=== PATIENT | male | born 1940 | race Caucasian/White ===

== ENCOUNTER 2021-07-18 13:52 | Inpatient (IN) | payer MEDICARE, SELFPAY ==
[2021-07-18] VITALS (19 sets, daily range): BP systolic 126–159; BP diastolic 56–100; PULSE 82–87; RESP 18–38; TEMP 36.6–37.1; O2SAT 10–95; BMI 36.1; BMI 35.1
--- NOTE | 2021-07-18 14:18 | EKG12_ITS ---
Test Reason : COUGH Blood Pressure : / mmHG Vent. Rate : 082 BPM Atrial Rate : 082 BPM P-R Int : 226 ms QRS Dur : 092 ms QT Int : 400 ms P-R-T Axes : 048 -27 -05 degrees QTc Int : 467 ms Sinus rhythm with 1st degree A-V block Otherwise normal ECG Confirmed by DAVID SEGURA, ZEESHAN ([id number]), fashion editor HANNA MELENDZE ([id number]) on 07/19/2021 9:24:08 AM Referred By: ZAKIA Confirmed By:ZEESHAN HERNANDEZ MD
--- NOTE | 2021-07-18 14:18 | CT_ITS ---
STUDY: CTA CHEST REASON FOR EXAM: Male, 80 years old. COUGH, COVID +, A FIB, HX-PROSTATE CA RADIATION DOSAGE (If Supplied By Facility): CTDIvol = ( 15.04 ) mGy, DLP = ( 516.11 ) mGycm TECHNIQUE: The examination was performed with the intravenous administration of IV 100mL Isovue-370. Post-processing of the angiographic images was performed, with multiplanar reformation and 3D reconstruction. Individualized dose optimization techniques were used for this CT. COMPARISON: None. FINDINGS: Mild to moderate islands of consolidation and groundglass edema are scattered throughout both lungs with primarily peripheral distribution, consistent with Covid 19 pneumonia. Normal enhancement of the main pulmonary artery and right and left pulmonary arteries. Normal enhancement of the bilateral peripheral pulmonary arteries. There is no demonstrated pulmonary embolism. There is atherosclerotic calcification of the aortic arch with tortuosity. There is no demonstrated aortic dissection. Normal heart and pericardium. Normal mediastinum. Normal hilar regions. Normal visualized trachea and bronchi. The lungs are well expanded. Normal pleura. Normal chest wall structures. There are degenerative changes of thoracic spine. Normal visualized upper abdomen. CT/CTA Chest W/WO Contrast IMPRESSION: 1. Mild to moderate islands of consolidation and groundglass edema are scattered throughout both lungs with primarily peripheral distribution, consistent with Covid 19 pneumonia. 2. No demonstrated pulmonary embolism or arterial dissection. Electronically Signed: Krishan Lo MD at 16:39 EDT , Service support ,
--- NOTE | 2021-07-18 14:21 | EX.ED.DYSGE1 ---
HPI History of Present Illness Chief Complaint: Cough Narrative Narrative: Patient is an 80-year-old male from home who presents to the ER with shortness of breath/cough. He states he began with symptoms on July 06 and then tested positive for Covid on a home test on July 10. He states since that time has been having worsening shortness of breath and fatigue. He states he went to his family doctor today and his pulse ox was 82% on room air while there. He states he does not have a history of lung disorder denies any smoking or need for supplemental oxygen. He reports that with the persistent cough and now worsening shortness of breath and need for oxygen he was sent to the hospital for further evaluation and possible admission. [facility] Medical History Benign neoplasm of colon BPH (benign prostatic hyperplasia) CKD (chronic kidney disease) stage 3, GFR 30-59 ml/min Gout HLD (hyperlipidemia) HTN (hypertension) Hypothyroidism Osteoarthritis Paroxysmal atrial fibrillation Prostate cancer Home Medications allopurinol 100 mg PO BID 10/08/16 [History Last Taken Unknown] aspirin 81 mg PO DAILY@0800 10/08/16 [History Last Taken Unknown] bacitracin-polymyxin B 0.5 applic TP 5X/DAY #1 tube 10/08/16 [Rx Last Taken Unknown] lisinopril [Zestril] 10 mg PO DAILY 10/08/16 [History Last Taken Unknown] pravastatin 20 mg PO QHS 10/08/16 [History Last Taken Unknown] Allergy/AdvReac Type Severity Reaction Status Date / Time No Known Allergies Allergy Verified 10/08/16 09:45 Social History Smoking Status: Never smoker [facility] ED Constitutional Constitutional ED: Denies chills or fever(s) ENT ENT ED: Denies sore throat Cardiovascular Cardiovascular: Denies chest pain Respiratory/Chest Respiratory/Chest: Reports cough and dyspnea Gastrointestinal Gastrointestinal: Denies abdominal pain, diarrhea, nausea or vomiting Genitourinary Genitourinary ED: Denies dysuria Musculoskeletal Musculoskeletal: Reports myalgias Integumentary Denies rash Neurologic Neurologic: Denies headache(s) Hematologic/Lymphatic Hematologic/Lymphatic: Reports easy bleeding and easy bruising EXAM Physical Exam Const Vital Signs: 07/18/21 13:53 07/18/21 14:06 07/18/21 15:00 Temperature 98.4 F 98.7 F 97.9 F Temperature Source Temporal Temporal Temporal Pulse Rate 86 84 85 Respiratory Rate 18 38 H 36 H Respiratory Effort Short of Breath Respiratory Depth Shallow Respiratory Pattern Tachypnea Blood Pressure 139/78 H 148/56 H 159/100 H Blood Pressure Mean 98 86 119 Pulse Ox 78 91 90 Oxygen Delivery Method Room Air Nasal Cannula Nasal Cannula Oxygen Flow Rate (L/min) 6 6 07/18/21 16:00 Temperature 98 F Temperature Source Temporal Pulse Rate 85 Respiratory Rate 26 H Respiratory Effort Respiratory Depth Respiratory Pattern Blood Pressure 143/70 H Blood Pressure Mean 94 Pulse Ox 90 Oxygen Delivery Method Nasal Cannula Oxygen Flow Rate (L/min) 6 Positive well nourished and well developed General Appearance ED: well developed HEENT HEENT Narrative: Mucous membranes are dry and tacky. No tongue or lip swelling no airway edema or compromise Eyes PERRL and EOMs intact bilaterally Neck supple and no JVD Neck Narrative: Positive anterior cervical lymphadenopathy noted Resp Resp Narrative: Patient is in mild respiratory distress with tachypnea and slight accessory muscle use. Breath sounds are diminished throughout with diffuse expiratory wheeze and rhonchi in the bilateral bases. Cardio regular rate and regular rhythm GI non-tender and non-distended GI Narrative: No voluntary guarding no rigidity no pulsatile mass Auscultation: normoactive bowel sounds Palpation: soft Extremity normal to inspection Extremity Narrative: No asymmetric edema no pitting edema negative Homans' sign bilaterally Neuro oriented x3 and CN's II-XII intact bilaterally Sensorium / Orientation: alert Motor Exam: strength 5/5 throughout Psych mental status grossly normal Skin no rashes or lesions noted Skin Narrative: Skin turgor is increased MDM MDM MDM Narrative Medical decision making narrative: Patient was at his doctor's office and was down to 82% on room air. He has no need for supplemental oxygen and no report of lung pathology. He states he tested positive for Covid on a home test on July 10 but as I do not have record of this I did elect to perform a rapid. His rapid test was negative but his CT scan revealed groundglass opacities consistent with Covid pneumonia. At this time he is requiring 7 L to keep his oxygen level greater than 90% and he still has tachypnea breathing approximately 30 times a minute. Therefore this time I do not feel he is safe for discharge. Patient was given albuterol and Decadron in the ER and will be admitted to the hospital secondary to his need for supplemental oxygen Lab Data Attestation: I reviewed the patient's lab results. Labs: Laboratory Results - last 24 hr 07/18/21 07/18/21 07/18/21 14:30 14:30 14:30 WBC 9.9 RBC 4.83 Hgb 14.1 Hct 41.8 MCV 86.5 MCH 29.2 MCHC 33.7 RDW Std Deviation 46.3 H RDW Coeff of Arjun 14.6 Plt Count 293 MPV 9.8 Immature Gran % (Auto) 2.100 H Neut % (Auto) 87.5 H Lymph % (Auto) 6.6 L Woodson % (Auto) 2.9 Eos % (Auto) 0.5 Baso % (Auto) 0.4 Absolute Neuts (auto) 8.6 H Absolute Lymphs (auto) 0.65 L Nucleated RBC % 0 PT 20.2 H INR 1.8 APTT 48.2 H Sodium Potassium Chloride Carbon Dioxide Anion Gap BUN Creatinine Estim Creat Clear Calc Est GFR (MDRD) Af Amer Est GFR (MDRD) Non-Af BUN/Creatinine Ratio Glucose Calcium Troponin I High Sens B-Natriuretic Peptide 195.8 H 07/18/21 14:30 WBC RBC Hgb Hct MCV MCH MCHC RDW Std Deviation RDW Coeff of Arjun Plt Count MPV Immature Gran % (Auto) Neut % (Auto) Lymph % (Auto) Woodson % (Auto) Eos % (Auto) Baso % (Auto) Absolute Neuts (auto) Absolute Lymphs (auto) Nucleated RBC % PT INR APTT Sodium 137 Potassium 3.9 Chloride 100 Carbon Dioxide 29.0 Anion Gap 8 BUN 26 H Creatinine 1.22 Estim Creat Clear Calc 49.86 Est GFR (MDRD) Af Amer 73 Est GFR (MDRD) Non-Af 61 BUN/Creatinine Ratio 21.3 H Glucose 162 H Calcium 9.2 Troponin I High Sens 22 B-Natriuretic Peptide Radiography Diagnostic Testing: Clinical Impression(s) from Imaging Studies Chest CTA 07/18/21 14:18 IMPRESSION: 1. Mild to moderate islands of consolidation and groundglass edema are scattered throughout both lungs with primarily peripheral distribution, consistent with Covid 19 pneumonia. 2. No demonstrated pulmonary embolism or arterial dissection. Electronically Signed: Krishan Lo MD at 16:39 EDT , Service support , Critical Care Time Critical Care Time: Yes Critical care time (excluding procedures): - (Please note critical care time of 33 minutes) Discharge Plan Triage Chief Complaint: Cough ED Provider: Umberto Mcdaniels Dx/Rx/DC Orders Clinical Impression: Acute respiratory failure with hypoxia Prescriptions: No Action allopurinol 100 MG tablet 100 mg PO BID RF: 0 lisinopril [Zestril] 10 MG tablet 10 mg PO DAILY RF: 0 aspirin 81 MG Tab.Chew 81 mg PO DAILY@0800 RF: 0 pravastatin 20 MG tablet 20 mg PO QHS RF: 0 bacitracin-polymyxin B 14.17 GM Oint...G. 0.5 applic TP 5X/DAY Qty: 1 RF: 0 Primary Care Provider: Rohan Dyer Referrals: Rohan Dyer MD [Primary Care Provider] - Disposition Disposition: Acute Care Hospital [facility]
--- NOTE | 2021-07-18 14:25 | NURSING ---
NO OLD EKGS
[2021-07-18 14:42] LABS: Absolute Lymphocyte Count 0.65 X10^3/uL (0.83-4.51); Absolute Neutrophil Count 8.6 X10^3/uL (2.0-7.7); Basophil# 0.04 X10^3/uL; Basophil% 0.4 % (0-1); Eosinophil# 0.05 X10^3/uL; Eosinophils% 0.5 % (0-5); Hematocrit 41.8 % (40-54); Hemoglobin 14.1 g/dL (13.0-16.5); Lymphocyte # 0.65 X10^3/ul (0.83-4.51); Lymphocyte % 6.6 % (19-41); Mean Corp Hgb Conc 33.7 g/dL (32-36); Mean Corpuscular Hgb 29.2 pg (27.0-32.0); Mean Corpuscular Volume 86.5 fL (80-94); Mean Platelet Vol. 9.8 fl (6.2-12.0); Monocyte# 0.29 X10^3/uL; Monocyte% 2.9 % (0-10); NRBC Flagged by Analyzer 0 % (0-5); Neutrophil # 8.61 X10^3/uL (2.7-7.7); Neutrophil % 87.5 % (47-70); Platelet Count 293 K/mm3 (150-450); RBC Distribution Width CV 14.6 % (11.6-14.6); RBC Distribution Width SD 46.3 fl (35.1-43.9); Red Blood Count 4.83 M/mm3 (4.6-6.2); White Blood Count 9.9 K/mm3 (4.4-11.0)
[2021-07-18] MEDS: dexAMETHasone 10 MG/ML Vial IV (14:44)
[2021-07-18 15:02] LABS: International Normalized Ratio 1.8; Prothrombin Time (Protime)PT. 20.2 SECONDS (11.7-14.9)
[2021-07-18 15:03] LABS: Partial Thromboplast Time 48.2 Seconds (24.1-36.2)
[2021-07-18 15:04] LABS: Anion Gap 8 (5-15); BUN 26 mg/dL (7-18); BUN/Creat Ratio 21.3 RATIO (10-20); Calcium,Total 9.2 mg/dL (8.5-10.1); Chloride 100 mmol/L (98-107); Creatinine, Serum 1.22 mg/dL (0.70-1.30); EST Glomerular Filtration Rate 61 mL/min (>60); Est Glom Filt Rate - Afr Amer 73 mL/min (>60); Estimated Creatinine Clearance 49.86 ml/min; Glucose 162 mg/dL (74-106); Potassium 3.9 mmol/L (3.5-5.1); Sodium Level 137 mmol/L (136-145); Troponin-I HS 22 pg/mL (3.0-78.0)
[2021-07-18 15:20] LABS: BNP,B-Type NATRIURETIC PEPTIDE 195.8 pg/mL (0-100)
--- NOTE | 2021-07-18 17:15 | NURSING ---
DR BAUTISTA FOR DR KOEHLER
--- NOTE | 2021-07-18 17:25 | PCM.HP.STD ---
Documented by User: ANGELO Richardson 07/18/21 17:45 HPI - General General Date of Admission: 07/18/21 Date of Service: 07/18/21 Chief Complaint: Shortness of breath HPI Narrative RENATO DALLAS JR, is a 80 M who presents with complaints of increased shortness of breath. Patient states that he became symptomatic on 07/06/2021 and tested positive for Covid via home Covid test on 07/10/2021. Patient states that he went to primary care physician's office today due to increased shortness of breath and was noted to have a pulse ox in the 80s on room air as well as adventitious lung sounds. Patient was then sent to ER. Patient denies fever, chills, chest pain, nausea, vomiting. Patient also reports persistent harsh cough. [facility] Medical History (Updated 07/18/21 @ 17:40 by ANGELO Richardson) Benign neoplasm of colon BPH (benign prostatic hyperplasia) CKD (chronic kidney disease) stage 3, GFR 30-59 ml/min Gout HLD (hyperlipidemia) HTN (hypertension) Hypothyroidism Osteoarthritis Paroxysmal atrial fibrillation Prostate cancer Home Medications allopurinol 100 mg PO BID 10/08/16 [History Last Taken Unknown] amiodarone 100 mg PO DAILY 07/18/21 [History Last Taken 07/18/21] amlodipine 5 mg PO DAILY 07/18/21 [History Last Taken 07/18/21] apixaban [Eliquis] 5 mg PO BID 07/18/21 [History Last Taken 07/18/21] atorvastatin 20 mg PO QHS 07/18/21 [History Last Taken 07/17/21] levothyroxine [Synthroid] 88 mcg PO DAILY 07/18/21 [History Last Taken 07/17/21] lisinopril 40 mg PO DAILY 07/18/21 [History Last Taken 07/18/21] metoprolol tartrate 25 mg PO BID 07/18/21 [History Last Taken 07/18/21] Allergy/AdvReac Type Severity Reaction Status Date / Time No Known Allergies Allergy Verified 10/08/16 09:45 Family History (Updated 07/18/21 @ 17:28 by ANGELO Richardson) Father CVA (cerebral vascular accident) Mother Breast cancer Surgical History (Updated 07/18/21 @ 17:28 by ANGELO Richardson) History of cholecystectomy History of tonsillectomy Previous back surgery Social History (Updated 07/18/21 @ 17:29 by ANGELO Richardson) Smoking Status: Never smoker alcohol intake: never substance use type: does not use ROS Constitutional Constitutional: Reports malaise; Denies anorexia, chills, fever(s) or weakness Cardiovascular Cardiovascular: Denies chest pain, edema, palpitations or syncope Respiratory/Chest Respiratory/Chest: Reports cough, shortness of breath at rest, shortness of breath with exertion and wheezing Gastrointestinal Gastrointestinal: Denies abdominal pain, constipation, diarrhea, nausea or vomiting Genitourinary Genitourinary: Denies dysuria Musculoskeletal Musculoskeletal: Denies back pain, extremity pain, joint pain or joint stiffness Integumentary Integumentary: Denies dry skin Neurologic Neurologic: Denies abnormal gait, abnormal speech, confusion or dizziness Psychiatric Psychiatric: Denies anxiety or depression Endocrine Endocrinology: Denies change in body appearance Hematologic/Lymphatic Hematologic/Lymphatic: Denies anemia, easy bleeding or easy bruising Vital Signs Vital Signs Vital Signs: 07/18/21 13:53 07/18/21 14:06 07/18/21 15:00 Temperature 98.4 F 98.7 F 97.9 F Temperature Source Temporal Temporal Temporal Pulse Rate 86 84 85 Respiratory Rate 18 38 H 36 H Respiratory Effort Short of Breath Respiratory Depth Shallow Respiratory Pattern Tachypnea Blood Pressure 139/78 H 148/56 H 159/100 H Blood Pressure Mean 98 86 119 Pulse Ox 78 91 90 Oxygen Delivery Method Room Air Nasal Cannula Nasal Cannula Oxygen Flow Rate (L/min) 6 6 07/18/21 16:00 Temperature 98 F Temperature Source Temporal Pulse Rate 85 Respiratory Rate 26 H Respiratory Effort Respiratory Depth Respiratory Pattern Blood Pressure 143/70 H Blood Pressure Mean 94 Pulse Ox 90 Oxygen Delivery Method Nasal Cannula Oxygen Flow Rate (L/min) 6 Weight Weight: 252 lb Body Mass Index (BMI) 36.1 Physical Exam Const alert, oriented x3 and no apparent distress General Appearance: cooperative HEENT normocephalic and head/scalp atraumatic Eyes conjunctivae normal and no scleral icterus Neck full ROM and supple General: trachea midline Resp normal respiratory effort and normal air movement Effort and Inspection: tachypneic Auscultation: wheezes expiratory wheezes, anterior and throughout Cardio regular rate, regular rhythm, S1 normal heart sound, S2 normal heart sound and peripheral pulses 2+ throughout GI normal to inspection, nondistended, normoactive bowel sounds, soft to palpation and non-tender Extremity normal capillary refill and no clubbing, cyanosis or edema General Extremity: no tenderness to palpation of joints or extremities Skin General Skin Exam: no breakdown and turgor normal Lesions: no lesions Rashes: no rashes Neuro oriented x3, moves all extremities, no focal motor deficits and no sensory deficits noted Psych thought process normal, cooperative and affect normal Appearance: appropriate Results Lab / Micro Data Result Diagrams: 07/18/21 14:30 07/18/21 14:30 Labs: Laboratory Results - last 24 hr 07/18/21 14:30: PT 20.2 H, INR 1.8, APTT 48.2 H 07/18/21 14:30: B-Natriuretic Peptide 195.8 H 07/18/21 14:30: WBC 9.9, RBC 4.83, Hgb 14.1, Hct 41.8, MCV 86.5, MCH 29.2, MCHC 33.7, RDW Std Deviation 46.3 H, RDW Coeff of Arjun 14.6, Plt Count 293, MPV 9.8, Immature Gran % (Auto) 2.100 H, Neut % (Auto) 87.5 H, Lymph % (Auto) 6.6 L, Zavala % (Auto) 2.9, Eos % (Auto) 0.5, Baso % (Auto) 0.4, Absolute Neuts (auto) 8.6 H, Absolute Lymphs (auto) 0.65 L, Nucleated RBC % 0 07/18/21 14:30: Sodium 137, Potassium 3.9, Chloride 100, Carbon Dioxide 29.0, Anion Gap 8, BUN 26 H, Creatinine 1.22, Estim Creat Clear Calc 49.86, Est GFR (MDRD) Af Amer 73, Est GFR (MDRD) Non-Af 61, BUN/Creatinine Ratio 21.3 H, Glucose 162 H, Calcium 9.2, Troponin I High Sens 22 Micro: Microbiology 07/18/21 14:46 Nasal Secretion SARS-CoV-2 Antigen (Rapid) - Final Radiology Impression Chest CTA 07/18/21 14:18 IMPRESSION: 1. Mild to moderate islands of consolidation and groundglass edema are scattered throughout both lungs with primarily peripheral distribution, consistent with Covid 19 pneumonia. 2. No demonstrated pulmonary embolism or arterial dissection. Electronically Signed: Krishan Lo MD at 16:39 EDT , Service support , Assessment & Plan Assessment/Plan (1) COVID-19: (2) Acute respiratory failure with hypoxia: PLAN: 1. Acute respiratory failure with hypoxia secondary to COVID-19 pneumonia -Admit to [facility], patient currently on 7 L nasal cannula oxygen -Patient will be initiated on dexamethasone, patient has been symptomatic for 12 days so he is not eligible for remdesivir. -As needed albuterol nebulizer treatments ordered -Covid precautions ordered -CBC and CMP ordered daily -Respiratory panel ordered -Urine Legionella and strep pneumoniae ordered for evaluation for bacterial superimposed pneumonia -Sputum culture p ordered -Encourage incentive spirometry, encourage patient to lie on side or stomach as much as possible -PT and OT to eval and treat -IV Lasix 40 mg x 1 IV given 2. Hypertension -Continue lisinopril -Vital signs per protocol 3. Hyperlipidemia -Continue pravastatin DVT prophylaxis-subcu Lovenox This patient was seen by ANGELO Richardson under the supervision of Dr. Blank. Documented by User: Dr. Mary Blank MD 07/18/21 17:53 HPI - General General Date of Admission: 07/18/21 [facility] Medical History (Updated 07/18/21 @ 17:40 by Poppy Douglass NP-Kristopher) Benign neoplasm of colon BPH (benign prostatic hyperplasia) CKD (chronic kidney disease) stage 3, GFR 30-59 ml/min Gout HLD (hyperlipidemia) HTN (hypertension) Hypothyroidism Osteoarthritis Paroxysmal atrial fibrillation Prostate cancer Home Medications allopurinol 100 mg PO BID 10/08/16 [History Last Taken Unknown] amiodarone 100 mg PO DAILY 07/18/21 [History Last Taken 07/18/21] amlodipine 5 mg PO DAILY 07/18/21 [History Last Taken 07/18/21] apixaban [Eliquis] 5 mg PO BID 07/18/21 [History Last Taken 07/18/21] atorvastatin 20 mg PO QHS 07/18/21 [History Last Taken 07/17/21] levothyroxine [Synthroid] 88 mcg PO DAILY 07/18/21 [History Last Taken 07/17/21] lisinopril 40 mg PO DAILY 07/18/21 [History Last Taken 07/18/21] metoprolol tartrate 25 mg PO BID 07/18/21 [History Last Taken 07/18/21] Allergy/AdvReac Type Severity Reaction Status Date / Time No Known Allergies Allergy Verified 10/08/16 09:45 Family History (Updated 07/18/21 @ 17:28 by ANGELO Richardson) Father CVA (cerebral vascular accident) Mother Breast cancer Surgical History (Updated 07/18/21 @ 17:28 by ANGELO Richardson) History of cholecystectomy History of tonsillectomy Previous back surgery Social History (Updated 07/18/21 @ 17:29 by ANEGLO Richardson) Smoking Status: Never smoker alcohol intake: never substance use type: does not use Results Lab / Micro Data Result Diagrams: 07/18/21 14:30 07/18/21 14:30 Charges/Coding Addendum Addendum: This patient was seen in conjunction with Poppy Douglass NP. I have independently interviewed and examined the patient and reviewed pertinent historical, laboratory, and other data. I have reviewed her note and concur with her documentation 80-year-old male with past medical history of hypertension, paroxysmal atrial fibrillation who comes in with progressive shortness of breath. Patient has been vaccinated. She received both doses of more than now. He started having symptoms on 07/06/21. He tested positive for Covid on 07/10/21. He comes in because his pulse ox was in the 80s in his primary care doctor's office. Patient was seen in the low 90s on 6 L of oxygen. CTA of the chest was negative for acute PE Physical Exam: Gen:Comfortable, not pale, not jaundiced, on 6L oxygen, obese CVS:HS I +II, regular, no murmurs RESP: Diminished at lung bases GI: BS present and normal, soft, nontender, no palpable organs EXT:No edema ASSESSMENT: 1. Acute hypoxic respiratory failure secondary to acute COVID-19 pneumonia 2. Hypertension 3. Hyperlipidemia 4. Paroxysmal A. fib 5. Hypothyroidism Plan: Admit to [facility], continue on IV dexamethasone Not a candidate for remdesivir Breathing treatments Check urine Legionella and streptococcal antigen Sputum cultures Continue on apixaban Continue rest of his home medications Trial of Lasix 40 mg IV x1 I discussed and explained in details the various types of CODE STATUS-full code, DNR CCA, DNR CC. Patient chose DNR-CCA, no intubation Time spent discussing CODE STATUS 16 minutes Visit Charges Inpatient E&M: 47771 Init Hosp L3 Procedures Hospitalists Procedures: 96251 Advncd Care Plan 30 Min
--- NOTE | 2021-07-18 17:28 | NURSING ---
HOSPITALIST IN ER
--- NOTE | 2021-07-18 17:59 | ED.RN ---
THIS NURSE CONTACTED THE CHARGE NURSE ON MED SURG 3, ANNA, PER REQUEST TO PLEASE CONTACT THE WITH THE PCR COVID RESULTS
[2021-07-18] MEDS: Furosemide 40 MG/4 ML Vial IV (18:41)
[2021-07-18] MEDS: 0.9% Saline Lock 10 ML Syringe IV ×2 (18:41→22:31)
--- NOTE | 2021-07-18 20:57 | NURSING ---
Notified of test results per request.
[2021-07-18] MEDS: Allopurinol 100 MG Tablet PO (22:31)
[2021-07-18] MEDS: APIXABAN 5 MG TABLET PO (22:32)
[2021-07-18] MEDS: Atorvastatin Calcium 20 MG Tablet PO (22:32)
[2021-07-18] MEDS: Metoprolol Tartrate 25 MG Tablet PO (22:32)
[2021-07-19] VITALS (23 sets, daily range): BP systolic 111–143; BP diastolic 50–86; PULSE 62–89; RESP 18–26; TEMP 36.6–37; O2SAT 86–96
--- NOTE | 2021-07-19 00:56 | PCS.PANDOC ---
PANDEMIC DOCUMENTATION INITIATED: Date: 07/18/2021 Time: 190
[2021-07-19] MEDS: Levothyroxine 88 MCG Tablet PO (05:39)
[2021-07-19 06:25] LABS: Absolute Lymphocyte Count 0.82 X10^3/uL (0.83-4.51); Absolute Neutrophil Count 10.3 X10^3/uL (2.0-7.7); Basophil# 0.02 X10^3/uL; Basophil% 0.2 % (0-1); Hematocrit 39.5 % (40-54); Hemoglobin 13.4 g/dL (13.0-16.5); Lymphocyte # 0.82 X10^3/ul (0.83-4.51); Mean Corp Hgb Conc 33.9 g/dL (32-36); Mean Corpuscular Hgb 29.5 pg (27.0-32.0); Mean Corpuscular Volume 86.8 fL (80-94); Mean Platelet Vol. 10.1 fl (6.2-12.0); Monocyte# 0.24 X10^3/uL; Monocyte% 2.1 % (0-10); NRBC Flagged by Analyzer 0 % (0-5); Neutrophil # 10.34 X10^3/uL (2.7-7.7); Neutrophil % 88.8 % (47-70); Platelet Count 330 K/mm3 (150-450); RBC Distribution Width CV 14.8 % (11.6-14.6); RBC Distribution Width SD 47.4 fl (35.1-43.9); Red Blood Count 4.55 M/mm3 (4.6-6.2); White Blood Count 11.6 K/mm3 (4.4-11.0)
[2021-07-19 07:05] LABS: ALB/GLOB Ratio 0.5 RATIO (0.9-2.4); AST(SGOT) 37 U/L (15-37); Alanine Aminotransfer ALT/SGPT 48 U/L (16-61); Albumin, Serum 2.3 g/dL (3.2-5.0); Alkaline Phosphatase 112 U/L (45-117); Anion Gap 9 (5-15); BUN 31 mg/dL (7-18); BUN/Creat Ratio 23.5 RATIO (10-20); Chloride 101 mmol/L (98-107); Creatinine, Serum 1.32 mg/dL (0.70-1.30); EST Glomerular Filtration Rate 55 mL/min (>60); Est Glom Filt Rate - Afr Amer 67 mL/min (>60); Estimated Creatinine Clearance 46.09 ml/min; Glucose 188 mg/dL (74-106); Potassium 3.7 mmol/L (3.5-5.1); Protein, Total 7.3 g/dL (6.4-8.2); Sodium Level 136 mmol/L (136-145)
--- NOTE | 2021-07-19 07:20 | PCM.PN.HOSP ---
Subjective Subjective Patient is an 80-year-old gentleman vaccinated against COVID-19 who presented with persistent cough as well as shortness of breath with activity. He had apparently tested positive for Covid on 07/10/2021. Presented to the emergency department due to worsening symptoms. Imaging studies obtained on admission demonstrated Mild to moderate islands of consolidation and groundglass edema are scattered throughout both lungs with primarily peripheral distribution, consistent with Covid 19 pneumonia.. Admitted to regular nursing floor for further management Objective Data Objective Data Vital Signs: Vital Signs Temp Pulse Resp BP Pulse Ox 97.9 F 78 18 122/78 H 92 07/19/21 05:34 07/19/21 05:34 07/19/21 05:34 07/19/21 05:34 07/19/21 05:34 Oxygen Flow Rate (L/min) 60 Oxygen Delivery Method Airvo Weight: 111.1 kg Body Mass Index (BMI) 35.1 Intake & Output: Intake and Output for Last 24 Hours 07/17/21 07/18/21 07/19/21 23:59 23:59 23:59 Intake Total 500 / 500 Output Total 300 / 300 300 / 300 Balance 200 / 200 -300 / -300 Lab / Micro Data Result Diagrams: 07/19/21 05:58 07/19/21 05:58 Labs: Laboratory Results - last 24 hr 07/18/21 14:30: PT 20.2 H, INR 1.8, APTT 48.2 H 07/18/21 14:30: B-Natriuretic Peptide 195.8 H 07/18/21 14:30: WBC 9.9, RBC 4.83, Hgb 14.1, Hct 41.8, MCV 86.5, MCH 29.2, MCHC 33.7, RDW Std Deviation 46.3 H, RDW Coeff of Arjun 14.6, Plt Count 293, MPV 9.8, Immature Gran % (Auto) 2.100 H, Neut % (Auto) 87.5 H, Lymph % (Auto) 6.6 L, [place] % (Auto) 2.9, Eos % (Auto) 0.5, Baso % (Auto) 0.4, Absolute Neuts (auto) 8.6 H, Absolute Lymphs (auto) 0.65 L, Nucleated RBC % 0 07/18/21 14:30: Sodium 137, Potassium 3.9, Chloride 100, Carbon Dioxide 29.0, Anion Gap 8, BUN 26 H, Creatinine 1.22, Estim Creat Clear Calc 49.86, Est GFR (MDRD) Af Amer 73, Est GFR (MDRD) Non-Af 61, BUN/Creatinine Ratio 21.3 H, Glucose 162 H, Calcium 9.2, Troponin I High Sens 22 07/18/21 17:25: COVID-19 (DRAKE) Detected 07/19/21 05:58: WBC 11.6 H, RBC 4.55 L, Hgb 13.4, Hct 39.5 L, MCV 86.8, MCH 29.5, MCHC 33.9, RDW Std Deviation 47.4 H, RDW Coeff of Arjun 14.8 H, Plt Count 330, MPV 10.1, Immature Gran % (Auto) 1.900 H, Neut % (Auto) 88.8 H, Lymph % (Auto) 7.0 L, [place] % (Auto) 2.1, Eos % (Auto) 0.0, Baso % (Auto) 0.2, Absolute Neuts (auto) 10.3 H, Absolute Lymphs (auto) 0.82 L, Nucleated RBC % 0 07/19/21 05:58: Sodium 136, Potassium 3.7, Chloride 101, Carbon Dioxide 26.0, Anion Gap 9, BUN 31 H, Creatinine 1.32 H, Estim Creat Clear Calc 46.09, Est GFR (MDRD) Af Amer 67, Est GFR (MDRD) Non-Af 55 L, BUN/Creatinine Ratio 23.5 H, Glucose 188 H, Calcium 9.0, Total Bilirubin 1.40 H, AST 37, ALT 48, Alkaline Phosphatase 112, Total Protein 7.3, Albumin 2.3 L, Globulin 5.0 H, Albumin/Globulin Ratio 0.5 L Micro: Microbiology 07/18/21 17:25 Mucosa - Nasopharyngeal Respiratory Panel (PCR) - Final 07/18/21 20:53 Urine, Clean Catch Legionella Antigen - Final 07/18/21 20:53 Urine, Clean Catch Streptococcus pneumoniae Antigen (M - Final 07/18/21 14:46 Nasal Secretion SARS-CoV-2 Antigen (Rapid) - Final Radiography Diagnostic Testing: Radiology Impression Chest CTA 07/18/21 14:18 IMPRESSION: 1. Mild to moderate islands of consolidation and groundglass edema are scattered throughout both lungs with primarily peripheral distribution, consistent with Covid 19 pneumonia. 2. No demonstrated pulmonary embolism or arterial dissection. Electronically Signed: Krishan Lo MD at 16:39 EDT , Service support , Physical Exam Narrative GENERAL: cooperative, on Vapotherm HEENT: Atraumatic; EYES; Anicteric, Normal Conjunctiva NECK; supple, normal thyroid, RESPIRATORY: Diminished to auscultation CARDIOVASCULAR: Regular S1 S2, GI: soft, normoactive bowel sounds, : No Renal angle tenderness; EXTREMITIES: No edema, no clubbing, MUSCULOSKELETAL: no muscle waisting NEURO: Awake; no lateralizing signs. SKIN: No Rash PSYCH; Flat affect Assessment & Plan Assessment/Plan (1) COVID-19: (2) Acute respiratory failure with hypoxia: PLAN: Patient is an 80-year-old gentleman vaccinated against COVID-19 who presented with persistent cough as well as shortness of breath with activity. He h 1. Acute hypoxic respiratory failure ?Secondary to SARS-CoV-2 pneumonia. Admitted to regular nursing floor where patient is currently being managed with Decadron. Patient is outside the window for remdesivir. Was also placed on supplemental oxygen titrated to keep saturation greater than 90. Also did encourage the use of incentive spirometry 2. Physical deconditioning - Requested for PT OT eval and social service coordinator to assist with discharge planning 3. Hypertension - Blood pressure controlled, home medications continued with dose adjustment as needed 4. Dyslipidemia -Patient is on statin therapy, continued at home dose 5. Gout ?Patient is on allopurinol did continue 6. Hypothyroidism - Patient is on levothyroxine home dose continued 7. Paroxysmal A. fib ?On amiodarone as well as systemic anticoagulation with Eliquis 8. Acute renal insufficiency ?Patient creatinine did go up from 1.22 on admission to 1.32 had been started on Lasix discontinued 9. Obesity with BMI of 35.1 ?Weight loss advised 10. DVT prophylaxis ?On Eliquis 11. GI prophylaxis - patient is on both Eliquis as well as Decadron placing him at increased risk for bleeding, placed on Protonix 40 mg daily CODE STATUS DNR CCA no intubation Charges/Coding Visit Charges Inpatient E&M: 58590 Subs Hosp L3
[2021-07-19] MEDS: Metoprolol Tartrate 25 MG Tablet PO ×2 (08:42→22:42)
[2021-07-19] MEDS: APIXABAN 5 MG TABLET PO ×2 (08:43→22:37)
[2021-07-19] MEDS: dexAMETHasone 10 MG/ML Vial 6 MG IV (08:43)
[2021-07-19] MEDS: 0.9% Saline Lock 10 ML Syringe IV (08:43)
[2021-07-19] MEDS: amLODIPine 5 MG Tablet PO (08:43)
[2021-07-19] MEDS: Allopurinol 100 MG Tablet PO ×2 (08:43→22:37)
[2021-07-19] MEDS: Lisinopril 40 MG Tablet PO (08:43)
[2021-07-19] MEDS: Amiodarone 200 MG Tablet 100 MG PO (08:43)
--- NOTE | 2021-07-19 15:20 | CASEMGMT ---
JAKE RANDHAWA Assessment: Face to Face with pt for initial transition planning/care coordination assessment. JAKE RANDHAWA introduced self and role at [facility], pt voices understanding and consents to assessment. Pt is A/O x4 and answers all questions appropriately at this time. Pt sitting up in the chair with airvo on, short of breath with conversation. Care providers, pharmacy, and demographics verified/updated. Admitting Dx: Resp Failure COVID 19 PCP:Gomez Specialists:Holli, cardio; Viki, uro; derm and ENT but patient cannot think of the names. [facility]erred [facility]acy: [facility] Insurance: [facility] Prescription Benefit: yes LW/HPOA: Pt states he has a LW/DPOA and his DPOA is his , Dariana Romero. He is aware that this is not on file at [facility] and he may bring in to be scanned into the chart. LNOK: Dariana Romero, ; Dex Romero, son Living Arrangements: Pt lives with in a single story house with 3 steps to enter in the front with a rail and 2 steps through the garage without rail. Pt reports he was I in ADL's and denies concerns at home. Transportation: Pt drives self and denies concerns with transportation. DME/HHC/SNF: Pt denies having any DME, hx of HHC or SNF stays. Pt states he took a home test that showed he was positive for COVID. He states his also has symptoms but are not as severe. He states she has not been tested. They have been quarantining and have family who can provide groceries and supplies. Provided pt with a verbal local in network list of DME companies, pt chose [employer]. Pt states no concerns with going home at time of dc. Pt states no further concerns/needs. CM to follow. Advised pt to ask CM if any further question/concerns/needs arise, voices understanding. Pt Goal: Home Plan: Home, follow O2.
[2021-07-19] MEDS: Atorvastatin Calcium 20 MG Tablet PO (22:37)
[2021-07-20] VITALS (22 sets, daily range): BP systolic 113–137; BP diastolic 63–82; PULSE 60–103; RESP 18–24; TEMP 36.4–36.9; O2SAT 88–96
[2021-07-20] MEDS: Levothyroxine 88 MCG Tablet PO (04:31)
--- NOTE | 2021-07-20 07:02 | PN.HOSP_ITS ---
Subjective Subjective Patient seen still remains on high flow oxygen via Vapotherm with easy desaturation with minimal activity. Objective Data Objective Data Vital Signs: Vital Signs Temp Pulse Resp BP Pulse Ox 98.1 F 84 18 117/71 92 07/20/21 04:29 07/20/21 04:38 07/20/21 04:29 07/20/21 04:29 07/20/21 04:29 Oxygen Flow Rate (L/min) 60 Oxygen Delivery Method Airvo Weight: 111.1 kg Body Mass Index (BMI) 35.1 Intake & Output: Intake and Output for Last 24 Hours 07/18/21 07/19/21 07/20/21 23:59 23:59 23:59 Intake Total 500 / 500 1500 / 1500 Output Total 300 / 300 825 / 825 200 / 200 Balance 200 / 200 675 / 675 -200 / -200 Medical Nutrition Assessment Dietitian: Malnutrition Criteria Met Start: 07/19/21 1 4:54 Freq: Status: Active Protocol: Document 07/19/21 14:54 AG (Rec: 07/19/21 14:54 [id number]) Nutrition Malnutrition Evidence of Malnutrition Exists Yes Malnutrition (moderate): Acute Illness/Injury Evidenced By Suboptimal Energy Intake ( Moderate),Weight Loss ( Moderate) Clinical Problem Acute Disease or Injury Related Malnutrition Etiology moderate, acute malnutrition r /t inadequate energy intake d/ t acute illness Signs/Symptoms as evidenced by reported decreased appetite (estimated PO intake meeting <75% of estimated nutritional needs >1 week), unintentional wt loss of 5.1#/2% x 13 days Status Active Problem Recommendation Dietitian Recommendations/Changes continue regular diet, 120mL ensure enlive w/ meals d/t acute malnutrition Lab / Micro Data Result Diagrams: 07/20/21 06:40 07/20/21 06:40 Labs: Laboratory Results - last 24 hr 07/19/21 05:58: Sodium 136, Potassium 3.7, Chloride 101, Carbon Dioxide 26.0, Anion Gap 9, BUN 31 H, Creatinine 1.32 H, Estim Creat Clear Calc 46.09, Est GFR (MDRD) Af Amer 67, Est GFR (MDRD) Non-Af 55 L, BUN/Creatinine Ratio 23.5 H, Glucose 188 H, Calcium 9.0, Total Bilirubin 1.40 H, AST 37, ALT 48, Alkaline Phosphatase 112, Total Protein 7.3, Albumin 2.3 L, Globulin 5.0 H, Albumin/Globulin Ratio 0.5 L Micro: Microbiology 07/18/21 17:25 Mucosa - Nasopharyngeal Respiratory Panel (PCR) - Final 07/18/21 20:53 Urine, Clean Catch Legionella Antigen - Final 07/18/21 20:53 Urine, Clean Catch Streptococcus pneumoniae Antigen (M - Final 07/18/21 14:46 Nasal Secretion SARS-CoV-2 Antigen (Rapid) - Final Physical Exam Narrative GENERAL: cooperative, on Vapotherm HEENT: Atraumatic; EYES; Anicteric, Normal Conjunctiva NECK; supple, normal thyroid, RESPIRATORY: Diminished to auscultation CARDIOVASCULAR: Regular S1 S2, GI: soft, normoactive bowel sounds, : No Renal angle tenderness; EXTREMITIES: No edema, no clubbing, MUSCULOSKELETAL: no muscle waisting NEURO: Awake; no lateralizing signs. SKIN: No Rash PSYCH; Flat affect Assessment & Plan Assessment/Plan (1) COVID-19: (2) Acute respiratory failure with hypoxia: PLAN: Patient is an 80-year-old gentleman vaccinated against COVID-19 who presented with persistent cough as well as shortness of breath with activity. He h 1. Acute hypoxic respiratory failure ?Secondary to SARS-CoV-2 pneumonia. Admitted to regular nursing floor where eugene laraprosper is currently being managed with Decadron. Patient is outside the window for remdesivir. Was also placed on supplemental oxygen titrated to keep saturation greater than 90. Also did encourage the use of incentive spirometry ?07/20/2021; Patient seen still remains on high flow oxygen via Vapotherm with easy desaturation with minimal activity. 2. Physical deconditioning - Requested for PT OT eval and social media marketing manager to assist with discharge planning 3. Hypertension - Blood pressure controlled, home medications continued with dose adjustment as needed 4. Dyslipidemia -Patient is on statin therapy, continued at home dose 5. Gout ?Patient is on allopurinol did continue 6. Hypothyroidism - Patient is on levothyroxine home dose continued 7. Paroxysmal A. fib ?On amiodarone as well as systemic anticoagulation with Eliquis 8. Acute renal insufficiency ?Patient creatinine did go up from 1.22 on admission to 1.32 had been started on Lasix discontinued 9. Obesity with BMI of 35.1 ?Weight loss advised 10. DVT prophylaxis ?On Eliquis 11. GI prophylaxis - patient is on both Eliquis as well as Decadron placing him at increased risk for bleeding, placed on Protonix 40 mg daily 12. Moderate acute malnutrition -evidenced by above tumor energy intake weight loss as well as decreased oral intake less than 75%. Etiology is underlying COVID-19 infection. Plan is to c onsult dietitian for dietary recommendations Charges/Coding Visit Charges Inpatient E&M: 46039 Subs Hosp L3
[2021-07-20 07:27] LABS: Absolute Lymphocyte Count 0.66 X10^3/uL (0.83-4.51); Absolute Neutrophil Count 15.1 X10^3/uL (2.0-7.7); Basophil# 0.02 X10^3/uL; Basophil% 0.1 % (0-1); Hematocrit 37.9 % (40-54); Hemoglobin 13.1 g/dL (13.0-16.5); Lymphocyte # 0.66 X10^3/ul (0.83-4.51); Mean Corp Hgb Conc 34.6 g/dL (32-36); Mean Corpuscular Hgb 29.8 pg (27.0-32.0); Mean Corpuscular Volume 86.1 fL (80-94); Mean Platelet Vol. 10.3 fl (6.2-12.0); Monocyte% 2.4 % (0-10); NRBC Flagged by Analyzer 0 % (0-5); Neutrophil % 90.6 % (47-70); Platelet Count 394 K/mm3 (150-450); RBC Distribution Width CV 14.8 % (11.6-14.6); White Blood Count 16.7 K/mm3 (4.4-11.0)
[2021-07-20 07:59] LABS: ALB/GLOB Ratio 0.5 RATIO (0.9-2.4); AST(SGOT) 60 U/L (15-37); Alanine Aminotransfer ALT/SGPT 81 U/L (16-61); Albumin, Serum 2.2 g/dL (3.2-5.0); Alkaline Phosphatase 112 U/L (45-117); Anion Gap 9 (5-15); BUN 49 mg/dL (7-18); BUN/Creat Ratio 38.6 RATIO (10-20); Calcium,Total 9.1 mg/dL (8.5-10.1); Chloride 103 mmol/L (98-107); Creatinine, Serum 1.27 mg/dL (0.70-1.30); EST Glomerular Filtration Rate 58 mL/min (>60); Est Glom Filt Rate - Afr Amer 70 mL/min (>60); Globulin 4.5 g/dL (2.2-4.2); Glucose 174 mg/dL (74-106); Magnesium 2.4 mg/dL (1.6-2.6); Potassium 3.8 mmol/L (3.5-5.1); Protein, Total 6.7 g/dL (6.4-8.2); Sodium Level 140 mmol/L (136-145)
[2021-07-20] MEDS: Metoprolol Tartrate 25 MG Tablet PO ×2 (09:01→21:07)
[2021-07-20] MEDS: Amiodarone 200 MG Tablet 100 MG PO (09:01)
[2021-07-20] MEDS: amLODIPine 5 MG Tablet PO (09:01)
[2021-07-20] MEDS: Lisinopril 40 MG Tablet PO (09:01)
[2021-07-20] MEDS: Allopurinol 100 MG Tablet PO ×2 (09:01→21:07)
[2021-07-20] MEDS: APIXABAN 5 MG TABLET PO ×2 (09:01→21:07)
[2021-07-20] MEDS: dexAMETHasone 10 MG/ML Vial 6 MG IV (09:02)
[2021-07-20] MEDS: 0.9% Saline Lock 10 ML Syringe IV (09:02)
[2021-07-20] MEDS: Atorvastatin Calcium 20 MG Tablet PO (21:07)
[2021-07-21] VITALS (22 sets, daily range): BP systolic 100–131; BP diastolic 63–77; PULSE 69–83; RESP 18–24; TEMP 36.6–36.8; O2SAT 88–96
[2021-07-21] MEDS: Levothyroxine 88 MCG Tablet PO (04:39)
[2021-07-21 06:35] LABS: Absolute Lymphocyte Count 0.51 X10^3/uL (0.83-4.51); Absolute Neutrophil Count 9.9 X10^3/uL (2.0-7.7); Basophil# 0.02 X10^3/uL; Basophil% 0.2 % (0-1); Eosinophil# 0.01 X10^3/uL; Eosinophils% 0.1 % (0-5); Hematocrit 38.5 % (40-54); Hemoglobin 12.7 g/dL (13.0-16.5); Lymphocyte # 0.51 X10^3/ul (0.83-4.51); Lymphocyte % 4.6 % (19-41); Mean Corpuscular Volume 87.9 fL (80-94); Monocyte# 0.31 X10^3/uL; Monocyte% 2.8 % (0-10); NRBC Flagged by Analyzer 0 % (0-5); Neutrophil # 9.92 X10^3/uL (2.7-7.7); Neutrophil % 90.3 % (47-70); POSITIVE DIFFERENTIAL YES; Platelet Count 364 K/mm3 (150-450); RBC Distribution Width CV 14.8 % (11.6-14.6); RBC Distribution Width SD 48.3 fl (35.1-43.9); Red Blood Count 4.38 M/mm3 (4.6-6.2)
[2021-07-21 06:57] LABS: Differential Indicated SCAN CRITERIA MET
[2021-07-21 06:59] LABS: ALB/GLOB Ratio 0.5 RATIO (0.9-2.4); AST(SGOT) 55 U/L (15-37); Alanine Aminotransfer ALT/SGPT 95 U/L (16-61); Albumin, Serum 2.2 g/dL (3.2-5.0); Alkaline Phosphatase 111 U/L (45-117); Anion Gap 7 (5-15); BUN 44 mg/dL (7-18); BUN/Creat Ratio 38.3 RATIO (10-20); Calcium,Total 8.8 mg/dL (8.5-10.1); Chloride 104 mmol/L (98-107); Creatinine, Serum 1.15 mg/dL (0.70-1.30); EST Glomerular Filtration Rate 65 mL/min (>60); Est Glom Filt Rate - Afr Amer 79 mL/min (>60); Globulin 4.3 g/dL (2.2-4.2); Glucose 163 mg/dL (74-106); Potassium 4.5 mmol/L (3.5-5.1); Protein, Total 6.5 g/dL (6.4-8.2); Sodium Level 141 mmol/L (136-145)
[2021-07-21] MEDS: Allopurinol 100 MG Tablet PO ×2 (10:20→20:09)
[2021-07-21] MEDS: APIXABAN 5 MG TABLET PO ×2 (10:20→20:09)
[2021-07-21] MEDS: dexAMETHasone 10 MG/ML Vial 6 MG IV (10:20)
--- NOTE | 2021-07-21 11:17 | PN.HOSP_ITS ---
Subjective Subjective Continue with air Vo, no issues overnight Objective Data Objective Data Vital Signs: Vital Signs Temp Pulse Resp BP Pulse Ox 98.2 F 70 24 H 131/69 H 90 07/21/21 03:50 07/21/21 07:46 07/21/21 07:43 07/21/21 03:50 07/21/21 10:11 Oxygen Flow Rate (L/min) 60 Oxygen Delivery Method Airvo Weight: 244 lb 14.937 oz Body Mass Index (BMI) 35.1 Intake & Output: Intake and Output for Last 24 Hours 07/20/21 07/21/21 07/22/21 03:59 03:59 03:59 Intake Total 1500 / 1500 150 / 150 Output Total 525 / 525 900 / 900 200 / 200 Balance 975 / 975 -750 / -750 -200 / -200 Medical Nutrition Assessment Dietitian: Malnutrition Criteria Met Start: 07/19/21 14:54 Freq: Status: Active Protocol: Document 07/19/21 14:54 (Rec: 07/19/21 14:54 [id number]) Nutrition Malnutrition Evidence of Malnutrition Exists Yes Malnutrition (moderate): Acute Illness/Injury Evidenced By Suboptimal Energy Intake ( Moderate),Weight Loss ( Moderate) Clinical Problem Acute Disease or Injury Related Malnutrition Etiology moderate, acute malnutrition r /t inadequate energy intake d/ t acute illness Signs/Symptoms as evidenced by reported decreased appetite (estimated PO intake meeting <75% of estimated nutritional needs >1 week), unintentional wt loss of 5.1#/2% x 13 days Status Active Problem Recommendation Dietitian Recommendations/Changes continue regular diet, 120mL ensure enlive w/ meals d/t acute malnutrition Lab / Micro Data Result Diagrams: 07/21/21 05:44 07/21/21 05:44 Labs: Laboratory Results - last 24 hr 07/21/21 05:44: WBC 11.0, RBC 4.38 L, Hgb 12.7 L, Hct 38.5 L, MCV 87.9, MCH 29.0, MCHC 33.0, RDW Std Deviation 48.3 H, RDW Coeff of Arjun 14.8 H, Plt Count 364, MPV 10.0, Immature Gran % (Auto) 2.000 H, Neut % (Auto) 90.3 H, Lymph % (Auto) 4.6 L, [place] % (Auto) 2.8, Eos % (Auto) 0.1, Baso % (Auto) 0.2, Absolute Neuts (auto) 9.9 H, Absolute Lymphs (auto) 0.51 L, Nucleated RBC % 0 07/21/21 05:44: Sodium 141, Potassium 4.5, Chloride 104, Carbon Dioxide 30.0, Anion Gap 7, BUN 44 H, Creatinine 1.15, Estim Creat Clear Calc 52.90, Est GFR (MDRD) Af Amer 79, Est GFR (MDRD) Non-Af 65, BUN/Creatinine Ratio 38.3 H, Glucose 163 H, Calcium 8.8, Total Bilirubin 1.00, AST 55 H, ALT 95 H, Alkaline Phosphatase 111, Total Protein 6.5, Albumin 2.2 L, Globulin 4.3 H, Albumin/Globulin Ratio 0.5 L Micro: Microbiology 07/18/21 17:25 Mucosa - Nasopharyngeal Respiratory Panel (PCR) - Final 07/18/21 20:53 Urine, Clean Catch Legionella Antigen - Final 07/18/21 20:53 Urine, Clean Catch Streptococcus pneumoniae Antigen (M - Final 07/18/21 14:46 Nasal Secretion SARS-CoV-2 Antigen (Rapid) - Final Physical Exam Const alert, oriented x3 and no apparent distress General Appearance: cooperative HEENT normocephalic and moist oral mucous membranes Eyes PERRL, EOMs intact bilaterally and conjunctivae normal Neck supple and no JVD Resp normal respiratory effort, no retractions and no use of accessory muscles Auscultation: crackles and diminished lung sounds; Negative for rales, rhonchi or wheezes Cardio regular rate, regular rhythm, S1 normal heart sound, S2 normal heart sound and no murmurs GI soft to palpation, non-tender and non-distended; Negative for hepatosplenomegaly Extremity no clubbing, cyanosis or edema Skin no rashes or lesions noted Neuro no focal motor deficits and no sensory deficits noted Psych Appearance: appropriate Mood & Affect: flat affect Assessment & Plan Assessment/Plan (1) COVID-19: (2) Acute respiratory failure with hypoxia: PLAN: 1. Acute hypoxic respiratory failure ?Secondary to SARS-CoV-2 pneumonia. Admitted to regular nursing floor where patient is currently being managed with Decadron. Patient is outside the window for remdesivir. Was also placed on supplemental oxygen titrated to keep saturation greater than 90. Also did encourage the use of incentive spirometry ?07/20/2021; Patient seen still remains on high flow oxygen via Vapotherm with e asy desaturation with minimal activity. 07/21/2021: Continue with Decadron, outside the window for remdesivir or baricitinib. Will recheck creatinine in the morning, if stable will start him on Lasix 2. Physical deconditioning - Requested for PT OT eval and delinquency prevention social worker to assist with discharge planning 3. Hypertension - Blood pressure controlled, home medications continued with dose adjustment as needed 4. Dyslipidemia -Patient is on statin therapy, continued at home dose 5. Gout ?Patient is on allopurinol did continue 6. Hypothyroidism - Patient is on levothyroxine home dose continued 7. Paroxysmal A. fib ?On amiodarone as well as systemic anticoagulation with Eliquis 8. Acute renal insufficiency ?Patient creatinine did go up from 1.22 on admission to 1.32 had been started on Lasix discontinued 9. Obesity with BMI of 35.1 ?Weight loss advised 10. GI prophylaxis - patient is on both Eliquis as well as Decadron placing him at increased risk for bleeding, placed on Protonix 40 mg daily 11. Moderate acute malnutrition -evidenced by above tumor energy intake weight loss as well as decreased oral intake less than 75%. Etiology is underlying COVID-19 infection. Plan is to consult dietitian for dietary recommendations DVT: Eliquis Charges/Coding Visit Charges Inpatient E&M: 57733 Subs Hosp L2
[2021-07-21] MEDS: Metoprolol Tartrate 25 MG Tablet PO ×2 (13:42→20:10)
[2021-07-21] MEDS: Amiodarone 200 MG Tablet 100 MG PO (13:42)
[2021-07-21] MEDS: Atorvastatin Calcium 20 MG Tablet PO (20:10)
[2021-07-22] VITALS (18 sets, daily range): BP systolic 98–141; BP diastolic 59–81; PULSE 67–82; RESP 18–22; TEMP 36.3–36.8; O2SAT 92–95
[2021-07-22] MEDS: Levothyroxine 88 MCG Tablet PO (06:49)
[2021-07-22 08:20] LABS: Absolute Lymphocyte Count 0.58 X10^3/uL (0.83-4.51); Absolute Neutrophil Count 10.2 X10^3/uL (2.0-7.7); Basophil# 0.03 X10^3/uL; Basophil% 0.3 % (0-1); Eosinophil# 0.03 X10^3/uL; Eosinophils% 0.3 % (0-5); Hematocrit 38.8 % (40-54); Hemoglobin 12.9 g/dL (13.0-16.5); Lymphocyte # 0.58 X10^3/ul (0.83-4.51); Lymphocyte % 5.1 % (19-41); Mean Corp Hgb Conc 33.2 g/dL (32-36); Mean Corpuscular Hgb 29.6 pg (27.0-32.0); Mean Platelet Vol. 10.1 fl (6.2-12.0); Monocyte# 0.27 X10^3/uL; Monocyte% 2.4 % (0-10); NRBC Flagged by Analyzer 0 % (0-5); Neutrophil # 10.19 X10^3/uL (2.7-7.7); Neutrophil % 89.5 % (47-70); POSITIVE DIFFERENTIAL YES; Platelet Count 347 K/mm3 (150-450); RBC Distribution Width CV 14.6 % (11.6-14.6); RBC Distribution Width SD 47.2 fl (35.1-43.9); Red Blood Count 4.36 M/mm3 (4.6-6.2); White Blood Count 11.4 K/mm3 (4.4-11.0)
[2021-07-22 08:28] LABS: Differential Indicated SCAN CRITERIA MET
[2021-07-22 08:44] LABS: ALB/GLOB Ratio 0.5 RATIO (0.9-2.4); AST(SGOT) 39 U/L (15-37); Alanine Aminotransfer ALT/SGPT 86 U/L (16-61); Albumin, Serum 2.1 g/dL (3.2-5.0); Alkaline Phosphatase 102 U/L (45-117); Anion Gap 7 (5-15); BUN 34 mg/dL (7-18); BUN/Creat Ratio 31.2 RATIO (10-20); Calcium,Total 8.7 mg/dL (8.5-10.1); Chloride 104 mmol/L (98-107); Creatinine, Serum 1.09 mg/dL (0.70-1.30); EST Glomerular Filtration Rate 69 mL/min (>60); Est Glom Filt Rate - Afr Amer 84 mL/min (>60); Estimated Creatinine Clearance 55.81 ml/min; Globulin 4.3 g/dL (2.2-4.2); Glucose 151 mg/dL (74-106); Potassium 4.4 mmol/L (3.5-5.1); Protein, Total 6.4 g/dL (6.4-8.2); Sodium Level 140 mmol/L (136-145)
[2021-07-22 08:59] LABS: Differential Comment SCANNED
[2021-07-22] MEDS: APIXABAN 5 MG TABLET PO ×2 (09:03→20:50)
[2021-07-22] MEDS: Allopurinol 100 MG Tablet PO ×2 (09:03→20:50)
[2021-07-22] MEDS: dexAMETHasone 10 MG/ML Vial 6 MG IV (09:03)
[2021-07-22] MEDS: Lisinopril 40 MG Tablet PO (09:03)
[2021-07-22] MEDS: Metoprolol Tartrate 25 MG Tablet PO ×2 (09:03→20:50)
[2021-07-22] MEDS: Amiodarone 200 MG Tablet 100 MG PO (09:03)
[2021-07-22] MEDS: amLODIPine 5 MG Tablet PO (09:03)
[2021-07-22] MEDS: 0.9% Saline Lock 10 ML Syringe IV ×2 (09:03→10:35)
--- NOTE | 2021-07-22 09:54 | PN.HOSP_ITS ---
Subjective Subjective Doing well, no issues overnight, remains on air Vo. Objective Data Objective Data Vital Signs: Vital Signs Temp Pulse Resp BP Pulse Ox 97.8 F 77 18 141/81 H 92 07/22/21 08:59 07/22/21 09:03 07/22/21 08:59 07/22/21 08:59 07/22/21 08:59 Oxygen Flow Rate (L/min) 55 Oxygen Delivery Method Airvo Weight: 244 lb 14.937 oz Body Mass Index (BMI) 35.1 Intake & Output: Intake and Output for Last 24 Hours 07/21/21 07/22/21 07/23/21 03:59 03:59 03:59 Intake Total 150 / 150 1250 / 1250 100 / 100 Output Total 900 / 900 650 / 650 Balance -750 / -750 600 / 600 100 / 100 Medical Nutrition Assessment Dietitian: Malnutrition Criteria Met Start: 07/19/21 14:54 Freq: Status: Active Protocol: Document 07/19/21 14:54 AG (Rec: 07/19/21 14:54 [id number]) Nutrition Malnutrition Evidence of Malnutrition Exists Yes Malnutrition (moderate): Acute Illness/Injury Evidenced By Suboptimal Energy Intake ( Moderate),Weight Loss ( Moderate) Clinical Problem Acute Disease or Injury Related Malnutrition Etiology moderate, acute malnutrition r /t inadequate energy intake d/ t acute illness Signs/Symptoms as evidenced by reported decreased appetite (estimated PO intake meeting <75% of estimated nutritional needs >1 week), unintentional wt loss of 5.1#/2% x 13 days Status Active Problem Recommendation Dietitian Recommendations/Changes continue regular diet, 120mL ensure enlive w/ meals d/t acute malnutrition Lab / Micro Data Result Diagrams: 07/22/21 07:41 07/22/21 07:41 Labs: Laboratory Results - last 24 hr 07/22/21 07:41: WBC 11.4 H, RBC 4.36 L, Hgb 12.9 L, Hct 38.8 L, MCV 89.0, MCH 29.6, MCHC 33.2, RDW Std Deviation 47.2 H, RDW Coeff of Arjun 14.6, Plt Count 347, MPV 10.1, Immature Gran % (Auto) 2.400 H, Neut % (Auto) 89.5 H, Lymph % (Auto) 5.1 L, [place] % (Auto) 2.4, Eos % (Auto) 0.3, Baso % (Auto) 0.3, Absolute Neuts (auto) 10.2 H, Absolute Lymphs (auto) 0.58 L, Nucleated RBC % 0, Differential Comment SCANNED 07/22/21 07:41: Sodium 140, Potassium 4.4, Chloride 104, Carbon Dioxide 29.0, Anion Gap 7, BUN 34 H, Creatinine 1.09, Estim Creat Clear Calc 55.81, Est GFR (MDRD) Af Amer 84, Est GFR (MDRD) Non-Af 69, BUN/Creatinine Ratio 31.2 H, Glucose 151 H, Calcium 8.7, Total Bilirubin 0.80, AST 39 H, ALT 86 H, Alkaline Phosphatase 102, Total Protein 6.4, Albumin 2.1 L, Globulin 4.3 H, Albumin/Globulin Ratio 0.5 L Micro: Microbiology 07/18/21 17:25 Mucosa - Nasopharyngeal Respiratory Panel (PCR) - Final 07/18/21 20:53 Urine, Clean Catch Legionella Antigen - Final 07/18/21 20:53 Urine, Clean Catch Streptococcus pneumoniae Antigen (M - Final 07/18/21 14:46 Nasal Secretion SARS-CoV-2 Antigen (Rapid) - Final Physical Exam Const alert, oriented x3 and no apparent distress General Appearance: cooperative HEENT normocephalic and moist oral mucous membranes Eyes PERRL, EOMs intact bilaterally and conjunctivae normal Neck supple and no JVD Resp normal respiratory effort, normal air movement, no retractions and no use of a ccessory muscles Auscultation: crackles and diminished lung sounds; Negative for rales, rhonchi or wheezes Cardio regular rate, regular rhythm, S1 normal heart sound, S2 normal heart sound and no murmurs GI soft to palpation, non-tender and non-distended; Negative for hepatosplenomegaly Extremity no clubbing, cyanosis or edema Skin no rashes or lesions noted Neuro no focal motor deficits and no sensory deficits noted Psych Appearance: appropriate Mood & Affect: flat affect Assessment & Plan Assessment/Plan (1) COVID-19: (2) Acute respiratory failure with hypoxia: PLAN: 1. Acute hypoxic respiratory failure ?Secondary to SARS-CoV-2 pneumonia, symptoms started on 07/06/2021. Admitted to regular nursing floor where patient is currently being managed with Decadron. Patient is outside the window for remdesivir. Was also placed on supplemental oxygen titrated to keep saturation greater than 90. Also did encourage the use of incentive spirometry ?07/20/2021; Patient seen still remains on high flow oxygen via Vapotherm with easy desaturation with minimal activity. 07/21/2021: Continue with Decadron, outside the window for remdesivir or baricitinib. Will recheck creatinine in the morning, if stable will start him on Lasix -07/22/2021: Creatinine is improved to 1.09, given the crackles on exam we will give him some Lasix. We will continue with Decadron. 2. Physical deconditioning - Requested for PT OT eval and high school social studies tutor to assist with discharge planning 3. Hypertension/HLD/paroxysmal A. fib/obesity - Blood pressure controlled, home medications continued with dose adjustment as needed -Patient is on statin therapy, continued at home dose ?On amiodarone as well as systemic anticoagulation with Eliquis -BMI of 35.1, weight loss advised and strategies discussed 4. Gout ?Patient is on allopurinol did continue 5. Hypothyroidism - Patient is on levothyroxine home dose continued 6. EVELIA?resolved 7. Moderate acute malnutrition -evidenced by above tumor energy intake weight loss as well as decreased oral intake less than 75%. Etiology is underlying COVID-19 infection. Plan is to consult dietitian for dietary recommendations DVT: Sudhakar Charges/Coding Visit Charges Inpatient E&M: 01338 Subs Hosp L2
[2021-07-22] MEDS: Furosemide 40 MG/4 ML Vial IV (10:35)
[2021-07-22] MEDS: Polyethylene Glycol 3350 17 GM PACKET PO (10:35)
[2021-07-22] MEDS: Atorvastatin Calcium 20 MG Tablet PO (20:50)
[2021-07-23] VITALS (22 sets, daily range): BP systolic 104–128; BP diastolic 59–80; PULSE 63–88; RESP 16–24; TEMP 36.3–36.8; O2SAT 90–96
[2021-07-23] MEDS: Levothyroxine 88 MCG Tablet PO (05:08)
[2021-07-23 07:35] LABS: Absolute Lymphocyte Count 0.78 X10^3/uL (0.83-4.51); Absolute Neutrophil Count 11.4 X10^3/uL (2.0-7.7); Basophil# 0.03 X10^3/uL; Basophil% 0.2 % (0-1); Eosinophil# 0.03 X10^3/uL; Eosinophils% 0.2 % (0-5); Hematocrit 36.6 % (40-54); Hemoglobin 12.1 g/dL (13.0-16.5); Lymphocyte # 0.78 X10^3/ul (0.83-4.51); Mean Corp Hgb Conc 33.1 g/dL (32-36); Mean Corpuscular Hgb 29.7 pg (27.0-32.0); Mean Corpuscular Volume 89.9 fL (80-94); Mean Platelet Vol. 10.5 fl (6.2-12.0); Monocyte# 0.39 X10^3/uL; NRBC Flagged by Analyzer 0 % (0-5); Neutrophil # 11.42 X10^3/uL (2.7-7.7); Neutrophil % 88.3 % (47-70); Platelet Count 284 K/mm3 (150-450); RBC Distribution Width CV 14.7 % (11.6-14.6); RBC Distribution Width SD 48.4 fl (35.1-43.9); Red Blood Count 4.07 M/mm3 (4.6-6.2)
[2021-07-23 07:48] LABS: Anion Gap 5 (5-15); BUN 35 mg/dL (7-18); BUN/Creat Ratio 33.7 RATIO (10-20); Calcium,Total 8.8 mg/dL (8.5-10.1); Chloride 105 mmol/L (98-107); Creatinine, Serum 1.04 mg/dL (0.70-1.30); EST Glomerular Filtration Rate 73 mL/min (>60); Est Glom Filt Rate - Afr Amer 88 mL/min (>60); Estimated Creatinine Clearance 58.49 ml/min; Glucose 154 mg/dL (74-106); Sodium Level 140 mmol/L (136-145)
--- NOTE | 2021-07-23 08:41 | PCM.PN.HOSP ---
Subjective Subjective Breathing remains unchanged. No issues overnight Objective Data Objective Data Vital Signs: Vital Signs Temp Pulse Resp BP Pulse Ox 98.1 F 67 23 H 127/80 H 92 07/23/21 02:38 07/23/21 08:38 07/23/21 07:40 07/23/21 02:38 07/23/21 07:40 Oxygen Flow Rate (L/min) 60 Oxygen Delivery Method Airvo Weight: 244 lb 14.937 oz Body Mass Index (BMI) 35.1 Intake & Output: Intake and Output for Last 24 Hours 07/22/21 07/23/21 07/24/21 03:59 03:59 03:59 Intake Total 1250 / 1250 1900 / 1900 Output Total 650 / 650 350 / 350 Balance 600 / 600 1900 / 1900 -350 / -350 Medical Nutrition Assessment Dietitian: Malnutrition Criteria Met Start: 07/19/21 14:54 Freq: Status: Active Protocol: Document 07/22/21 11:23 AG (Rec: 07/22/21 11:23 [id number]) Nutrition Malnutrition Evidence of Malnutrition Exists Yes Malnutrition (moderate): Acute Illness/Injury Evidenced By Suboptimal Energy Intake ( Moderate),Weight Loss ( Moderate) Clinical Problem Acute Disease or Injury Related Malnutrition Etiology moderate, acute malnutrition r /t inadequate energy intake d/ t acute illness Signs/Symptoms as evidenced by reported decreased appetite, estimated PO intake meeting <75% of estimated nutritional needs >1 week, unintentional wt loss of 7.1#/2.8% x 13 days Status Active Problem Recommendation Dietitian Recommendations/Changes continue regular diet, 120mL ensure enlive w/ meals d/t acute malnutrition Lab / Micro Data Result Diagrams: 07/23/21 06:32 07/23/21 06:32 Labs: Laboratory Results - last 24 hr 07/22/21 07:41: Differential Comment SCANNED 07/22/21 07:41: Sodium 140, Potassium 4.4, Chloride 104, Carbon Dioxide 29.0, Anion Gap 7, BUN 34 H, Creatinine 1.09, Estim Creat Clear Calc 55.81, Est GFR (MDRD) Af Amer 84, Est GFR (MDRD) Non-Af 69, BUN/Creatinine Ratio 31.2 H, Glucose 151 H, Calcium 8.7, Total Bilirubin 0.80, AST 39 H, ALT 86 H, Alkaline Phosphatase 102, Total Protein 6.4, Albumin 2.1 L, Globulin 4.3 H, Albumin/Globulin Ratio 0.5 L 07/23/21 06:32: WBC 13.0 H, RBC 4.07 L, Hgb 12.1 L, Hct 36.6 L, MCV 89.9, MCH 29.7, MCHC 33.1, RDW Std Deviation 48.4 H, RDW Coeff of Arjun 14.7 H, Plt Count 284, MPV 10.5, Immature Gran % (Auto) 2.300 H, Neut % (Auto) 88.3 H, Lymph % (Auto) 6.0 L, [place] % (Auto) 3.0, Eos % (Auto) 0.2, Baso % (Auto) 0.2, Absolute Neuts (auto) 11.4 H, Absolute Lymphs (auto) 0.78 L, Nucleated RBC % 0 07/23/21 06:32: Sodium 140, Potassium 5.0, Chloride 105, Carbon Dioxide 30.0, Anion Gap 5, BUN 35 H, Creatinine 1.04, Estim Creat Clear Calc 58.49, Est GFR (MDRD) Af Amer 88, Est GFR (MDRD) Non-Af 73, BUN/Creatinine Ratio 33.7 H, Glucose 154 H, Calcium 8.8 Micro: Microbiology 07/22/21 10:40 Sputum, Expectorated/Coughed Gram Stain - Final 07/18/21 17:25 Mucosa - Nasopharyngeal Respiratory Panel (PCR) - Final 07/18/21 20:53 Urine, Clean Catch Legionella Antigen - Final 07/18/21 20:53 Urine, Clean Catch Streptococcus pneumoniae Antigen (M - Final 07/18/21 14:46 Nasal Secretion SARS-CoV-2 Antigen (Rapid) - Final Physical Exam Const alert, oriented x3 and no apparent distress General Appearance: cooperative HEENT normocephalic and moist oral mucous membranes Eyes PERRL, EOMs intact bilaterally and conjunctivae normal Neck supple and no JVD Resp normal respiratory effort, normal air movement, no retractions and no use of accessory muscles Auscultation: crackles and diminished lung sounds; Negative for rales, rhonchi or wheezes Cardio regular rate, regular rhythm, S1 normal heart sound, S2 normal heart sound and no murmurs GI soft to palpation, non-tender and non-distended; Negative for hepatosplenomegaly Extremity no clubbing, cyanosis or edema Skin no rashes or lesions noted Neuro no focal motor deficits and no sensory deficits noted Psych affect normal Appearance: appropriate Assessment & Plan Assessment/Plan (1) COVID-19: (2) Acute respiratory failure with hypoxia: PLAN: 1. Acute hypoxic respiratory failure ?Secondary to SARS-CoV-2 pneumonia, symptoms started on 07/06/2021. Admitted to regular nursing floor where patient is currently being managed with Decadron. Patient is outside the window for remdesivir. Was also placed on supplemental oxygen titrated to keep saturation greater than 90. Also did encourage the use of incentive spirometry ?07/20/2021; Patient seen still remains on high flow oxygen via Vapotherm with easy desaturation with minimal activity. 07/21/2021: Continue with Decadron, outside the window for remdesivir or baricitinib. Will recheck creatinine in the morning, if stable will start him on Lasix -07/22/2021: Creatinine is improved to 1.09, given the crackles on exam we will give him some Lasix. We will continue with Decadron -07/23/2021: Creatinine is stable, will give another dose of IV Lasix today. We will also place noncontrol in his room and instruct him on his use. Continues to have crackles on exam 2. Physical deconditioning - Requested for PT OT eval and child protective services social worker to assist with discharge planning 3. Hypertension/HLD/paroxysmal A. fib/obesity - Blood pressure controlled, home medications continued with dose adjustment as needed -Patient is on statin therapy, continued at home dose ?On amiodarone as well as systemic anticoagulation with Eliquis -BMI of 35.1, weight loss advised and strategies discussed 4. Gout ?Patient is on allopurinol did continue 5. Hypothyroidism - Patient is on levothyroxine home dose continued 6. EVELIA?resolved 7. Moderate acute malnutrition -evidenced by above tumor energy intake weight loss as well as decreased oral intake less than 75%. Etiology is underlying COVID-19 infection. Plan is to consult dietitian for dietary recommendations DVT: Eliquis Charges/Coding Visit Charges Inpatient E&M: 74639 Subs Hosp L2
--- NOTE | 2021-07-23 08:55 | PCS.PANDOC ---
PANDEMIC DOCUMENTATION INITIATED: Date: 05/16/2021 Time: 190
[2021-07-23] MEDS: Amiodarone 200 MG Tablet 100 MG PO (09:12)
[2021-07-23] MEDS: Furosemide 40 MG/4 ML Vial IV (09:12)
[2021-07-23] MEDS: dexAMETHasone 10 MG/ML Vial 6 MG IV (09:12)
[2021-07-23] MEDS: Metoprolol Tartrate 25 MG Tablet PO ×2 (09:13→20:12)
[2021-07-23] MEDS: amLODIPine 5 MG Tablet PO (09:13)
[2021-07-23] MEDS: APIXABAN 5 MG TABLET PO ×2 (09:13→20:12)
[2021-07-23] MEDS: Allopurinol 100 MG Tablet PO ×2 (09:13→20:12)
[2021-07-23] MEDS: Lisinopril 40 MG Tablet PO (09:14)
[2021-07-23] MEDS: 0.9% Saline Lock 10 ML Syringe IV (09:14)
[2021-07-23] MEDS: Atorvastatin Calcium 20 MG Tablet PO (20:12)
[2021-07-24] VITALS (19 sets, daily range): BP systolic 106–123; BP diastolic 70–91; PULSE 63–86; RESP 17–22; TEMP 36.6–36.9; O2SAT 90–95
[2021-07-24 06:01] LABS: Absolute Lymphocyte Count 0.77 X10^3/uL (0.83-4.51); Absolute Neutrophil Count 13.8 X10^3/uL (2.0-7.7); Basophil# 0.06 X10^3/uL; Basophil% 0.4 % (0-1); Eosinophil# 0.02 X10^3/uL; Eosinophils% 0.1 % (0-5); Hematocrit 36.8 % (40-54); Hemoglobin 12.1 g/dL (13.0-16.5); Lymphocyte # 0.77 X10^3/ul (0.83-4.51); Mean Corp Hgb Conc 32.9 g/dL (32-36); Mean Corpuscular Hgb 29.4 pg (27.0-32.0); Mean Corpuscular Volume 89.3 fL (80-94); Mean Platelet Vol. 10.3 fl (6.2-12.0); Monocyte# 0.52 X10^3/uL; Monocyte% 3.4 % (0-10); NRBC Flagged by Analyzer 0 % (0-5); Neutrophil # 13.81 X10^3/uL (2.7-7.7); Platelet Count 312 K/mm3 (150-450); RBC Distribution Width CV 14.6 % (11.6-14.6); RBC Distribution Width SD 47.9 fl (35.1-43.9); Red Blood Count 4.12 M/mm3 (4.6-6.2); White Blood Count 15.5 K/mm3 (4.4-11.0)
[2021-07-24 06:27] LABS: Anion Gap 5 (5-15); BUN 37 mg/dL (7-18); BUN/Creat Ratio 30.8 RATIO (10-20); Calcium,Total 8.6 mg/dL (8.5-10.1); Chloride 104 mmol/L (98-107); EST Glomerular Filtration Rate 62 mL/min (>60); Est Glom Filt Rate - Afr Amer 75 mL/min (>60); Estimated Creatinine Clearance 50.69 ml/min; Glucose 174 mg/dL (74-106); Potassium 4.8 mmol/L (3.5-5.1); Sodium Level 140 mmol/L (136-145)
[2021-07-24] MEDS: Levothyroxine 88 MCG Tablet PO (06:35)
[2021-07-24] MEDS: Amiodarone 200 MG Tablet 100 MG PO (09:17)
[2021-07-24] MEDS: APIXABAN 5 MG TABLET PO ×2 (09:17→20:47)
[2021-07-24] MEDS: Metoprolol Tartrate 25 MG Tablet PO ×2 (09:17→20:47)
[2021-07-24] MEDS: Allopurinol 100 MG Tablet PO ×2 (09:17→20:47)
[2021-07-24] MEDS: Lisinopril 40 MG Tablet PO (09:18)
[2021-07-24] MEDS: dexAMETHasone 10 MG/ML Vial 6 MG IV (09:18)
[2021-07-24] MEDS: amLODIPine 5 MG Tablet PO (09:18)
--- NOTE | 2021-07-24 09:21 | PN.HOSP_ITS ---
Subjective Subjective Remains unchanged. Breathing is stable. WBC is elevated secondary to steroids Objective Data Objective Data Vital Signs: Vital Signs Temp Pulse Resp BP Pulse Ox 97.9 F 67 20 H 123/75 H 90 07/24/21 02:10 07/24/21 07:05 07/24/21 07:05 07/24/21 02:10 07/24/21 07:05 Oxygen Flow Rate (L/min) 60 Oxygen Delivery Method Airvo Weight: 244 lb 7.882 oz Body Mass Index (BMI) 35.1 Intake & Output: Intake and Output for Last 24 Hours 07/23/21 07/24/21 07/25/21 03:59 03:59 03:59 Intake Total 1900 / 1900 1100 / 1100 400 / 400 Output Total 1530 / 1530 350 / 350 Balance 1900 / 1900 -430 / -430 50 / 50 Medical Nutrition Assessment Dietitian: Malnutrition Criteria Met Start: 07/19/21 14:54 Freq: Status: Active Protocol: Document 07/22/21 11:23 AG (Rec: 07/22/21 11:23 [id number]) Nutrition Malnutrition Evidence of Malnutrition Exists Yes Malnutrition (moderate): Acute Illness/Injury Evidenced By Suboptimal Energy Intake ( Moderate),Weight Loss ( Moderate) Clinical Problem Acute Disease or Injury Related Malnutrition Etiology moderate, acute malnutrition r /t inadequate energy intake d/ t acute illness Signs/Symptoms as evidenced by reported decreased appetite, estimated PO intake meeting <75% of estimated nutritional needs >1 week, unintentional wt loss of 7.1#/2.8% x 13 days Status Active Problem Recommendation Dietitian Recommendations/Changes continue regular diet, 120mL ensure enlive w/ meals d/t acute malnutrition Lab / Micro Data Result Diagrams: 07/24/21 05:20 07/24/21 05:20 Labs: Laboratory Results - last 24 hr 07/24/21 05:20: WBC 15.5 H, RBC 4.12 L, Hgb 12.1 L, Hct 36.8 L, MCV 89.3, MCH 29.4, MCHC 32.9, RDW Std Deviation 47.9 H, RDW Coeff of Arjun 14.6, Plt Count 312, MPV 10.3, Immature Gran % (Auto) 2.100 H, Neut % (Auto) 89.0 H, Lymph % (Auto) 5.0 L, [place] % (Auto) 3.4, Eos % (Auto) 0.1, Baso % (Auto) 0.4, Absolute Neuts (auto) 13.8 H, Absolute Lymphs (auto) 0.77 L, Nucleated RBC % 0 07/24/21 05:20: Sodium 140, Potassium 4.8, Chloride 104, Carbon Dioxide 31.0, Anion Gap 5, BUN 37 H, Creatinine 1.20, Estim Creat Clear Calc 50.69, Est GFR (MDRD) Af Amer 75, Est GFR (MDRD) Non-Af 62, BUN/Creatinine Ratio 30.8 H, Glucose 174 H, Calcium 8.6 Micro: Microbiology 07/22/21 10:40 Sputum, Expectorated/Coughed Gram Stain - Final 07/22/21 10:40 Sputum, Expectorated/Coughed Respiratory Culture - Preliminary Appears to be normal respiratory isabel. Further studies to follow. 07/18/21 17:25 Mucosa - Nasopharyngeal Respiratory Panel (PCR) - Final 07/18/21 20:53 Urine, Clean Catch Legionella Antigen - Final 07/18/21 20:53 Urine, Clean Catch Streptococcus pneumoniae Antigen (M - Final 07/18/21 14:46 Nasal Secretion SARS-CoV-2 Antigen (Rapid) - Final Physical Exam Const alert, oriented x3 and no apparent distress General Appearance: cooperative HEENT normocephalic and moist oral mucous membranes Eyes PERRL, EOMs intact bilaterally and conjunctivae normal Neck supple and no JVD Resp normal respiratory effort, normal air movement, no retractions and no use of accessory muscles Auscultation: diminished lung sounds; Negative for crackles, rales, rhonchi or wheezes Cardio regular rate, regular rhythm, S1 normal heart sound, S2 normal heart sound and no murmurs GI soft to palpation, non-tender and non-distended; Negative for hepatosplenomegaly Extremity no clubbing, cyanosis or edema Skin no rashes or lesions noted Neuro no focal motor deficits and no sensory deficits noted Psych affect normal Appearance: appropriate Assessment & Plan Assessment/Plan (1) COVID-19: (2) Acute respiratory failure with hypoxia: PLAN: 1. Acute hypoxic respiratory failure ?Secondary to SARS-CoV-2 pneumonia, symptoms started on 07/06/2021. Admitted to regular nursing floor where patient is currently being managed with Decadron. Patient is outside the window for remdesivir. Was also placed on supplemental oxygen titrated to keep saturation greater than 90. Also did encourage the use of incentive spirometry ?07/20/2021; Patient seen still remains on high flow oxygen via Vapotherm with easy desaturation with minimal activity. 07/21/2021: Continue with Decadron, outside the window for remdesivir or baricitinib. Will recheck creatinine in the morning, if stable will start him on Lasix -07/22/2021: Creatinine is improved to 1.09, given the crackles on exam we will give him some Lasix. We will continue with Decadron -07/23/2021: Creatinine is stable, will give another dose of IV Lasix today. We will also place Acapella in his room and instruct him on his use. Continues to have crackles on exam -07/24/2021: Creatinine is stable we will continue to monitor. Wean oxygen as able, continue to encourage proning as well as ambulation and pulmonary toileting 2. Physical deconditioning - Requested for PT OT eval and social and human services assistant to assist with discharge planning 3. Hypertension/HLD/paroxysmal A. fib/obesity - Blood pressure controlled, home medications continued with dose adjustment as needed -Patient is on statin therapy, continued at home dose ?On amiodarone as well as systemic anticoagulation with Eliquis -BMI of 35.1, weight loss advised and strategies discussed 4. Gout ?Patient is on allopurinol did continue 5. Hypothyroidism - Patient is on levothyroxine home dose continued 6. EVELIA?resolved 7. Moderate acute malnutrition -evidenced by above tumor energy intake weight loss as well as decreased oral intake less than 75%. Etiology is underlying COVID-19 infection. Plan is to consult dietitian for dietary recommendations DVT: Eliquis Charges/Coding Visit Charges Inpatient E&M: 53137 Subs Hosp L2
[2021-07-24] MEDS: Atorvastatin Calcium 20 MG Tablet PO (20:47)
[2021-07-24] MEDS: MELATONIN 3 MG TABLET PO (21:39)
[2021-07-25] VITALS (20 sets, daily range): BP systolic 107–123; BP diastolic 63–71; PULSE 63–88; RESP 18–22; TEMP 36.3–36.8; O2SAT 86–94
[2021-07-25] MEDS: Levothyroxine 88 MCG Tablet PO (05:04)
[2021-07-25 07:03] LABS: Absolute Lymphocyte Count 0.78 X10^3/uL (0.83-4.51); Absolute Neutrophil Count 15.7 X10^3/uL (2.0-7.7); Basophil# 0.03 X10^3/uL; Basophil% 0.2 % (0-1); Eosinophil# 0.01 X10^3/uL; Eosinophils% 0.1 % (0-5); Hemoglobin 11.9 g/dL (13.0-16.5); Lymphocyte # 0.78 X10^3/ul (0.83-4.51); Lymphocyte % 4.4 % (19-41); Mean Corpuscular Hgb 30.1 pg (27.0-32.0); Mean Corpuscular Volume 88.4 fL (80-94); Mean Platelet Vol. 10.6 fl (6.2-12.0); Monocyte# 0.73 X10^3/uL; Monocyte% 4.2 % (0-10); NRBC Flagged by Analyzer 0 % (0-5); Neutrophil # 15.66 X10^3/uL (2.7-7.7); Neutrophil % 89.1 % (47-70); Platelet Count 265 K/mm3 (150-450); RBC Distribution Width CV 14.4 % (11.6-14.6); RBC Distribution Width SD 46.3 fl (35.1-43.9); Red Blood Count 3.96 M/mm3 (4.6-6.2); White Blood Count 17.6 K/mm3 (4.4-11.0)
[2021-07-25 07:15] LABS: Anion Gap 6 (5-15); BUN 32 mg/dL (7-18); Calcium,Total 8.4 mg/dL (8.5-10.1); Chloride 105 mmol/L (98-107); Creatinine, Serum 0.97 mg/dL (0.70-1.30); EST Glomerular Filtration Rate 79 mL/min (>60); Est Glom Filt Rate - Afr Amer 96 mL/min (>60); Estimated Creatinine Clearance 62.71 ml/min; Glucose 173 mg/dL (74-106); Potassium 4.6 mmol/L (3.5-5.1); Sodium Level 138 mmol/L (136-145)
--- NOTE | 2021-07-25 08:55 | PCM.PN.HOSP ---
Subjective Subjective Remained stable on air Vo. No new issues overnight. Objective Data Objective Data Vital Signs: Vital Signs Temp Pulse Resp BP Pulse Ox 98.1 F 65 18 121/71 H 93 07/25/21 02:33 07/25/21 03:01 07/25/21 02:33 07/25/21 02:33 07/25/21 07:42 Oxygen Flow Rate (L/min) 60 Oxygen Delivery Method Nasal Cannula Weight: 243 lb 12.8 oz Body Mass Index (BMI) 35.1 Intake & Output: Intake and Output for Last 24 Hours 07/24/21 07/25/21 07/26/21 03:59 03:59 03:59 Intake Total 1100 / 1100 1600 / 1600 300 / 300 Output Total 1530 / 1530 950 / 950 400 / 400 Balance -430 / -430 650 / 650 -100 / -100 Medical Nutrition Assessment Dietitian: Malnutrition Criteria Met Start: 07/19/21 14:54 Freq: Status: Active Protocol: Document 07/22/21 11:23 (Rec: 07/22/21 11:23 [id number]) Nutrition Malnutrition Evidence of Malnutrition Exists Yes Malnutrition (moderate): Acute Illness/Injury Evidenced By Suboptimal Energy Intake ( Moderate),Weight Loss ( Moderate) Clinical Problem Acute Disease or Injury Related Malnutrition Etiology moderate, acute malnutrition r /t inadequate energy intake d/ t acute illness Signs/Symptoms as evidenced by reported decreased appetite, estimated PO intake meeting <75% of estimated nutritional needs >1 week, unintentional wt loss of 7.1#/2.8% x 13 days Status Active Problem Recommendation Dietitian Recommendations/Changes continue regular diet, 120mL ensure enlive w/ meals d/t acute malnutrition Lab / Micro Data Result Diagrams: 07/25/21 06:00 07/25/21 06:00 Labs: Laboratory Results - last 24 hr 07/25/21 06:00: WBC 17.6 H, RBC 3.96 L, Hgb 11.9 L, Hct 35.0 L, MCV 88.4, MCH 30.1, MCHC 34.0, RDW Std Deviation 46.3 H, RDW Coeff of Arjun 14.4, Plt Count 265, MPV 10.6, Immature Gran % (Auto) 2.000 H, Neut % (Auto) 89.1 H, Lymph % (Auto) 4.4 L, [place] % (Auto) 4.2, Eos % (Auto) 0.1, Baso % (Auto) 0.2, Absolute Neuts (auto) 15.7 H, Absolute Lymphs (auto) 0.78 L, Nucleated RBC % 0 07/25/21 06:00: Sodium 138, Potassium 4.6, Chloride 105, Carbon Dioxide 27.0, Anion Gap 6, BUN 32 H, Creatinine 0.97, Estim Creat Clear Calc 62.71, Est GFR (MDRD) Af Amer 96, Est GFR (MDRD) Non-Af 79, BUN/Creatinine Ratio 33.0 H, Glucose 173 H, Calcium 8.4 L Micro: Microbiology 07/22/21 10:40 Sputum, Expectorated/Coughed Gram Stain - Final 07/22/21 10:40 Sputum, Expectorated/Coughed Respiratory Culture - Final Mixed normal respiratory isabel. No Streptococcus pneumoniae, beta-hemolytic Streptococcus or Staphylococcus aureus isolated. 07/18/21 17:25 Mucosa - Nasopharyngeal Respiratory Panel (PCR) - Final 07/18/21 20:53 Urine, Clean Catch Legionella Antigen - Final 07/18/21 20:53 Urine, Clean Catch Streptococcus pneumoniae Antigen (M - Final 07/18/21 14:46 Nasal Secretion SARS-CoV-2 Antigen (Rapid) - Final Physical Exam Const alert, oriented x3 and no apparent distress General Appearance: cooperative HEENT normocephalic and moist oral mucous membranes Eyes PERRL, EOMs intact bilaterally and conjunctivae normal Neck supple and no JVD Resp normal respiratory effort, normal air movement, no retractions and no use of accessory muscles Auscultation: diminished lung sounds; Negative for crackles, rales, rhonchi or wheezes Cardio regular rate, regular rhythm, S1 normal heart sound, S2 normal heart sound and no murmurs GI soft to palpation, non-tender and non-distended; Negative for hepatosplenomegaly Extremity no clubbing, cyanosis or edema Skin no rashes or lesions noted Neuro no focal motor deficits and no sensory deficits noted Psych affect normal Appearance: appropriate Assessment & Plan Assessment/Plan (1) COVID-19: (2) Acute respiratory failure with hypoxia: PLAN: 1. Acute hypoxic respiratory failure ?Secondary to SARS-CoV-2 pneumonia, symptoms started on 07/06/2021. Admitted to regular nursing floor where patient is currently being managed with Decadron. Patient is outside the window for remdesivir. Was also placed on supplemental oxygen titrated to keep saturation greater than 90. Also did encourage the use of incentive spirometry ?07/20/2021; Patient seen still remains on high flow oxygen via Vapotherm with easy desaturation with minimal activity. 07/21/2021: Continue with Decadron, outside the window for remdesivir or baricitinib. Will recheck creatinine in the morning, if stable will start him on Lasix -07/22/2021: Creatinine is improved to 1.09, given the crackles on exam we will give him some Lasix. We will continue with Decadron -07/23/2021: Creatinine is stable, will give another dose of IV Lasix today. We will also place Acapella in his room and instruct him on his use. Continues to have crackles on exam -07/24/2021: Creatinine is stable we will continue to monitor. Wean oxygen as able, continue to encourage proning as well as ambulation and pulmonary toileting -07/25/2021: Creatinine is much better today, will plan on a dose of Lasix 2. Physical deconditioning - Requested for PT OT eval and social media developer to assist with discharge planning 3. Hypertension/HLD/paroxysmal A. fib/obesity - Blood pressure controlled, home medications continued with dose adjustment as needed -Patient is on statin therapy, continued at home dose ?On amiodarone as well as systemic anticoagulation with Eliquis -BMI of 35.1, weight loss advised and strategies discussed 4. Gout ?Patient is on allopurinol did continue 5. Hypothyroidism - Patient is on levothyroxine home dose continued 6. EVELIA?resolved 7. Moderate acute malnutrition -evidenced by above tumor energy intake weight loss as well as decreased oral intake less than 75%. Etiology is underlying COVID-19 infection. Plan is to consult dietitian for dietary recommendations DVT: Eliquis Charges/Coding Visit Charges Inpatient E&M: 04699 Subs Hosp L2
[2021-07-25] MEDS: Amiodarone 200 MG Tablet 100 MG PO (09:09)
[2021-07-25] MEDS: Allopurinol 100 MG Tablet PO ×2 (09:09→21:16)
[2021-07-25] MEDS: amLODIPine 5 MG Tablet PO (09:09)
[2021-07-25] MEDS: Lisinopril 40 MG Tablet PO (09:09)
[2021-07-25] MEDS: APIXABAN 5 MG TABLET PO ×2 (09:09→21:16)
[2021-07-25] MEDS: Metoprolol Tartrate 25 MG Tablet PO ×2 (09:10→21:16)
[2021-07-25] MEDS: dexAMETHasone 10 MG/ML Vial 6 MG IV (09:10)
[2021-07-25] MEDS: 0.9% Saline Lock 10 ML Syringe IV (10:08)
[2021-07-25] MEDS: Furosemide 40 MG/4 ML Vial IV (10:08)
[2021-07-25] MEDS: Atorvastatin Calcium 20 MG Tablet PO (21:16)
[2021-07-25] MEDS: MELATONIN 3 MG TABLET PO (21:16)
[2021-07-25] MEDS: Nystatin Powder 15gm Bottle 1 APPLIC TOPICAL (22:02)
[2021-07-26] VITALS (19 sets, daily range): BP systolic 101–122; BP diastolic 58–78; PULSE 67–86; RESP 18–22; TEMP 36.5–36.8; O2SAT 91–98
[2021-07-26 05:26] LABS: Absolute Lymphocyte Count 0.74 X10^3/uL (0.83-4.51); Absolute Neutrophil Count 13.3 X10^3/uL (2.0-7.7); Basophil# 0.04 X10^3/uL; Basophil% 0.3 % (0-1); Eosinophil# 0.01 X10^3/uL; Eosinophils% 0.1 % (0-5); Hematocrit 35.2 % (40-54); Hemoglobin 11.7 g/dL (13.0-16.5); Lymphocyte # 0.74 X10^3/ul (0.83-4.51); Lymphocyte % 4.8 % (19-41); Mean Corp Hgb Conc 33.2 g/dL (32-36); Mean Corpuscular Hgb 29.4 pg (27.0-32.0); Mean Corpuscular Volume 88.4 fL (80-94); Mean Platelet Vol. 10.6 fl (6.2-12.0); Monocyte# 0.87 X10^3/uL; Monocyte% 5.7 % (0-10); NRBC Flagged by Analyzer 0 % (0-5); Neutrophil # 13.31 X10^3/uL (2.7-7.7); Neutrophil % 86.9 % (47-70); Platelet Count 262 K/mm3 (150-450); RBC Distribution Width CV 14.3 % (11.6-14.6); RBC Distribution Width SD 46.2 fl (35.1-43.9); Red Blood Count 3.98 M/mm3 (4.6-6.2); White Blood Count 15.3 K/mm3 (4.4-11.0)
[2021-07-26 05:53] LABS: Anion Gap 7 (5-15); BUN 37 mg/dL (7-18); BUN/Creat Ratio 32.2 RATIO (10-20); Calcium,Total 8.5 mg/dL (8.5-10.1); Chloride 101 mmol/L (98-107); Creatinine, Serum 1.15 mg/dL (0.70-1.30); EST Glomerular Filtration Rate 65 mL/min (>60); Est Glom Filt Rate - Afr Amer 79 mL/min (>60); Glucose 207 mg/dL (74-106); Potassium 4.7 mmol/L (3.5-5.1); Sodium Level 137 mmol/L (136-145)
[2021-07-26] MEDS: Nystatin Powder 15gm Bottle 1 APPLIC TOPICAL ×3 (06:23→21:32)
[2021-07-26] MEDS: Levothyroxine 88 MCG Tablet PO (06:23)
[2021-07-26] MEDS: APIXABAN 5 MG TABLET PO ×2 (10:05→21:31)
[2021-07-26] MEDS: dexAMETHasone 10 MG/ML Vial 6 MG IV (10:05)
[2021-07-26] MEDS: Amiodarone 200 MG Tablet 100 MG PO (10:05)
[2021-07-26] MEDS: Allopurinol 100 MG Tablet PO ×2 (10:05→21:32)
--- NOTE | 2021-07-26 11:32 | PCM.PN.HOSP ---
Subjective Subjective Remained stable. No issues overnight. Still on air Vo maintaining his oxygen saturations. Continue to encourage pulmonary toileting, including incentive spirometry and Pep Objective Data Objective Data Vital Signs: Vital Signs Temp Pulse Resp BP Pulse Ox 97.8 F 75 18 105/58 L 92 07/26/21 09:59 07/26/21 10:04 07/26/21 09:59 07/26/21 10:04 07/26/21 09:59 Oxygen Flow Rate (L/min) 50 Oxygen Delivery Method Airvo Weight: 244 lb 0.827 oz Body Mass Index (BMI) 35.1 Intake & Output: Intake and Output for Last 24 Hours 07/25/21 07/26/21 07/27/21 03:59 03:59 03:59 Intake Total 1600 / 1600 1290 / 1290 100 / 100 Output Total 950 / 950 1950 / 1950 325 / 325 Balance 650 / 650 -660 / -660 -225 / -225 Medical Nutrition Assessment Dietitian: Malnutrition Criteria Met Start: 07/19/21 14:54 Freq: Status: Active Protocol: Document 07/22/21 11:23 (Rec: 07/22/21 11:23 [id number]) Nutrition Malnutrition Evidence of Malnutrition Exists Yes Malnutrition (moderate): Acute Illness/Injury Evidenced By Suboptimal Energy Intake ( Moderate),Weight Loss ( Moderate) Clinical Problem Acute Disease or Injury Related Malnutrition Etiology moderate, acute malnutrition r /t inadequate energy intake d/ t acute illness Signs/Symptoms as evidenced by reported decreased appetite, estimated PO intake meeting <75% of estimated nutritional needs >1 week, unintentional wt loss of 7.1#/2.8% x 13 days Status Active Problem Recommendation Dietitian Recommendations/Changes continue regular diet, 120mL ensure enlive w/ meals d/t acute malnutrition Lab / Micro Data Result Diagrams: 07/26/21 04:40 07/26/21 04:40 Labs: Laboratory Results - last 24 hr 07/26/21 04:40: WBC 15.3 H, RBC 3.98 L, Hgb 11.7 L, Hct 35.2 L, MCV 88.4, MCH 29.4, MCHC 33.2, RDW Std Deviation 46.2 H, RDW Coeff of Arjun 14.3, Plt Count 262, MPV 10.6, Immature Gran % (Auto) 2.200 H, Neut % (Auto) 86.9 H, Lymph % (Auto) 4.8 L, [place] % (Auto) 5.7, Eos % (Auto) 0.1, Baso % (Auto) 0.3, Absolute Neuts (auto) 13.3 H, Absolute Lymphs (auto) 0.74 L, Nucleated RBC % 0 07/26/21 04:40: Sodium 137, Potassium 4.7, Chloride 101, Carbon Dioxide 29.0, Anion Gap 7, BUN 37 H, Creatinine 1.15, Estim Creat Clear Calc 52.90, Est GFR (MDRD) Af Amer 79, Est GFR (MDRD) Non-Af 65, BUN/Creatinine Ratio 32.2 H, Glucose 207 H, Calcium 8.5 Micro: Microbiology 07/22/21 10:40 Sputum, Expectorated/Coughed Gram Stain - Final 07/22/21 10:40 Sputum, Expectorated/Coughed Respiratory Culture - Final Mixed normal respiratory isabel. No Streptococcus pneumoniae, beta-hemolytic Streptococcus or Staphylococcus aureus isolated. 07/18/21 17:25 Mucosa - Nasopharyngeal Respiratory Panel (PCR) - Final 07/18/21 20:53 Urine, Clean Catch Legionella Antigen - Final 07/18/21 20:53 Urine, Clean Catch Streptococcus pneumoniae Antigen (M - Final 07/18/21 14:46 Nasal Secretion SARS-CoV-2 Antigen (Rapid) - Final Physical Exam Const alert, oriented x3 and no apparent distress General Appearance: cooperative HEENT normocephalic and moist oral mucous membranes Eyes PERRL, EOMs intact bilaterally and conjunctivae normal Neck supple and no JVD Resp normal respiratory effort, normal air movement, no retractions and no use of accessory muscles Auscultation: diminished lung sounds; Negative for crackles, rales, rhonchi or wheezes Cardio regular rate, regular rhythm, S1 normal heart sound, S2 normal heart sound and no murmurs GI soft to palpation, non-tender and non-distended; Negative for hepatosplenomegaly Extremity no clubbing, cyanosis or edema Skin no rashes or lesions noted Neuro no focal motor deficits and no sensory deficits noted Psych affect normal Appearance: appropriate Assessment & Plan Assessment/Plan (1) COVID-19: (2) Acute respiratory failure with hypoxia: PLAN: 1. Acute hypoxic respiratory failure ?Secondary to SARS-CoV-2 pneumonia, symptoms started on 07/06/2021. Admitted to regular nursing floor where patient is currently being managed with Decadron. Patient is outside the window for remdesivir. Was also placed on supplemental oxygen titrated to keep saturation greater than 90. Also did encourage the use of incentive spirometry ?07/20/2021; Patient seen still remains on high flow oxygen via Vapotherm with easy desaturation with minimal activity. 07/21/2021: Continue with Decadron, outside the window for remdesivir or baricitinib. Will recheck creatinine in the morning, if stable will start him on Lasix -07/22/2021: Creatinine is improved to 1.09, given the crackles on exam we will give him some Lasix. We will continue with Decadron -07/23/2021: Creatinine is stable, will give another dose of IV Lasix today. We will also place Acapella in his room and instruct him on his use. Continues to have crackles on exam -07/24/2021: Creatinine is stable we will continue to monitor. Wean oxygen as able, continue to encourage proning as well as ambulation and pulmonary toileting -07/25/2021: Creatinine is much better today, will plan on a dose of Lasix -07/26/2021: Staying stable on air Vo has 2 more days of Decadron. We will give him a low-dose of Lasix today, sputum culture from 07/22/2021 demonstrated mixed normal isabel 2. Physical deconditioning - Requested for PT OT eval and social service agency director to assist with discharge planning 3. Hypertension/HLD/paroxysmal A. fib/obesity - Blood pressure controlled, home medications continued with dose adjustment as needed -Patient is on statin therapy, continued at home dose ?On amiodarone as well as systemic anticoagulation with Eliquis -BMI of 35.1, weight loss advised and strategies discussed 4. Gout ?Patient is on allopurinol did continue 5. Hypothyroidism - Patient is on levothyroxine home dose continued 6. EVELIA?resolved 7. Moderate acute malnutrition -evidenced by above tumor energy intake weight loss as well as decreased oral intake less than 75%. Etiology is underlying COVID-19 infection. Plan is to consult dietitian for dietary recommendations DVT: Eliquis Charges/Coding Visit Charges Inpatient E&M: 23463 Subs Hosp L2
[2021-07-26] MEDS: Furosemide 40 MG/4 ML Vial IV (14:01)
[2021-07-26] MEDS: Atorvastatin Calcium 20 MG Tablet PO (21:31)
[2021-07-26] MEDS: Metoprolol Tartrate 25 MG Tablet PO (21:31)
[2021-07-26] MEDS: MELATONIN 3 MG TABLET PO (21:32)
[2021-07-27] VITALS (19 sets, daily range): BP systolic 99–132; BP diastolic 67–81; PULSE 59–88; RESP 16–26; TEMP 36.4–36.8; O2SAT 91–95
[2021-07-27 05:20] LABS: Absolute Lymphocyte Count 0.85 X10^3/uL (0.83-4.51); Absolute Neutrophil Count 11.7 X10^3/uL (2.0-7.7); Basophil# 0.03 X10^3/uL; Basophil% 0.2 % (0-1); Eosinophil# 0.01 X10^3/uL; Eosinophils% 0.1 % (0-5); Hematocrit 34.6 % (40-54); Hemoglobin 11.7 g/dL (13.0-16.5); Lymphocyte # 0.85 X10^3/ul (0.83-4.51); Lymphocyte % 6.1 % (19-41); Mean Corp Hgb Conc 33.8 g/dL (32-36); Mean Corpuscular Hgb 29.8 pg (27.0-32.0); Mean Platelet Vol. 10.4 fl (6.2-12.0); Monocyte# 0.96 X10^3/uL; Monocyte% 6.8 % (0-10); NRBC Flagged by Analyzer 0 % (0-5); Neutrophil # 11.74 X10^3/uL (2.7-7.7); Neutrophil % 83.7 % (47-70); Platelet Count 250 K/mm3 (150-450); RBC Distribution Width CV 14.2 % (11.6-14.6); RBC Distribution Width SD 45.7 fl (35.1-43.9); Red Blood Count 3.93 M/mm3 (4.6-6.2)
[2021-07-27] MEDS: Levothyroxine 88 MCG Tablet PO (05:45)
[2021-07-27] MEDS: Nystatin Powder 15gm Bottle 1 APPLIC TOPICAL ×3 (05:45→22:43)
[2021-07-27 05:49] LABS: Anion Gap 7 (5-15); BUN 37 mg/dL (7-18); BUN/Creat Ratio 31.9 RATIO (10-20); Calcium,Total 8.5 mg/dL (8.5-10.1); Chloride 102 mmol/L (98-107); Creatinine, Serum 1.16 mg/dL (0.70-1.30); EST Glomerular Filtration Rate 64 mL/min (>60); Est Glom Filt Rate - Afr Amer 78 mL/min (>60); Estimated Creatinine Clearance 52.44 ml/min; Glucose 217 mg/dL (74-106); Potassium 4.9 mmol/L (3.5-5.1); Sodium Level 138 mmol/L (136-145)
[2021-07-27] MEDS: Furosemide 40 MG/4 ML Vial IV (08:38)
[2021-07-27] MEDS: 0.9% Saline Lock 10 ML Syringe IV ×2 (08:38→09:12)
[2021-07-27] MEDS: Amiodarone 200 MG Tablet 100 MG PO (09:11)
[2021-07-27] MEDS: dexAMETHasone 10 MG/ML Vial 6 MG IV (09:12)
[2021-07-27] MEDS: APIXABAN 5 MG TABLET PO ×2 (09:12→22:47)
[2021-07-27] MEDS: Allopurinol 100 MG Tablet PO ×2 (09:12→22:47)
--- NOTE | 2021-07-27 10:34 | PN.HOSP_ITS ---
Subjective Subjective Remained stable on air Vo. Very little movement and decreasing his FiO2. We will give him another dose of Lasix today. Sputum cultures were negative on 07/22/2021. Objective Data Objective Data Vital Signs: Vital Signs Temp Pulse Resp BP Pulse Ox 97.7 F L 72 16 99/67 92 07/27/21 09:09 07/27/21 09:09 07/27/21 09:09 07/27/21 09:09 07/27/21 09:09 Oxygen Flow Rate (L/min) 50 Oxygen Delivery Method Airvo Weight: 243 lb 9.773 oz Body Mass Index (BMI) 35.1 Intake & Output: Intake and Output for Last 24 Hours 07/26/21 07/27/21 07/28/21 03:59 03:59 03:59 Intake Total 1290 / 1290 300 / 300 100 / 100 Output Total 1950 / 1950 1675 / 1675 200 / 200 Balance -660 / -660 -1375 / -1375 -100 / -100 Medical Nutrition Assessment Dietitian: Malnutrition Criteria Met Start: 07/19/21 14:54 Freq: Status: Active Protocol: Document 07/22/21 11:23 AG (Rec: 07/22/21 11:23 [id number]) Nutrition Malnutrition Evidence of Malnutrition Exists Yes Malnutrition (moderate): Acute Illness/Injury Evidenced By Suboptimal Energy Intake ( Moderate),Weight Loss ( Moderate) Clinical Problem Acute Disease or Injury Related Malnutrition Etiology moderate, acute malnutrition r /t inadequate energy intake d/ t acute illness Signs/Symptoms as evidenced by reported decreased appetite, estimated PO intake meeting <75% of estimated nutritional needs >1 week, unintentional wt loss of 7.1#/2.8% x 13 days Status Active Problem Recommendation Dietitian Recommendations/Changes continue regular diet, 120mL ensure enlive w/ meals d/t acute malnutrition Lab / Micro Data Result Diagrams: 07/27/21 04:52 07/27/21 04:52 Labs: Laboratory Results - last 24 hr 07/27/21 04:52: WBC 14.0 H, RBC 3.93 L, Hgb 11.7 L, Hct 34.6 L, MCV 88.0, MCH 29.8, MCHC 33.8, RDW Std Deviation 45.7 H, RDW Coeff of Arjun 14.2, Plt Count 250, MPV 10.4, Immature Gran % (Auto) 3.100 H, Neut % (Auto) 83.7 H, Lymph % (Auto) 6.1 L, Hawkins % (Auto) 6.8, Eos % (Auto) 0.1, Baso % (Auto) 0.2, Absolute Neuts (auto) 11.7 H, Absolute Lymphs (auto) 0.85, Nucleated RBC % 0 07/27/21 04:52: Sodium 138, Potassium 4.9, Chloride 102, Carbon Dioxide 29.0, Anion Gap 7, BUN 37 H, Creatinine 1.16, Estim Creat Clear Calc 52.44, Est GFR (MDRD) Af Amer 78, Est GFR (MDRD) Non-Af 64, BUN/Creatinine Ratio 31.9 H, Gl ucose 217 H, Calcium 8.5 Micro: Microbiology 07/22/21 10:40 Sputum, Expectorated/Coughed Gram Stain - Final 07/22/21 10:40 Sputum, Expectorated/Coughed Respiratory Culture - Final Mixed normal respiratory isabel. No Streptococcus pneumoniae, beta-hemolytic Streptococcus or Staphylococcus aureus isolated. 07/18/21 17:25 Mucosa - Nasopharyngeal Respiratory Panel (PCR) - Final 07/18/21 20:53 Urine, Clean Catch Legionella Antigen - Final 07/18/21 20:53 Urine, Clean Catch Streptococcus pneumoniae Antigen (M - Final 07/18/21 14:46 Nasal Secretion SARS-CoV-2 Antigen (Rapid) - Final Physical Exam Const alert, oriented x3 and no apparent distress General Appearance: cooperative HEENT normocephalic and moist oral mucous membranes Eyes PERRL, EOMs intact bilaterally and conjunctivae normal Neck supple and no JVD Resp normal respiratory effort, normal air movement, no retractions and no use of accessory muscles Auscultation: diminished lung sounds; Negative for crackles, rales, rhonchi or wheezes Cardio regular rate, regular rhythm, S1 normal heart sound, S2 normal heart sound and no murmurs GI soft to palpation, non-tender and non-distended; Negative for hepatosplenomegaly Extremity no clubbing, cyanosis or edema Skin no rashes or lesions noted Neuro no focal motor deficits and no sensory deficits noted Psych affect normal Appearance: appropriate Assessment & Plan Assessment/Plan (1) COVID-19: (2) Acute respiratory failure with hypoxia: PLAN: 1. Acute hypoxic respiratory failure ?Secondary to SARS-CoV-2 pneumonia, symptoms started on 07/06/2021. Admitted to regular nursing floor where patient is currently being managed with Decadron. Patient is outside the window for remdesivir. Was also placed on supplemental oxygen titrated to keep saturation greater than 90. Also did encourage the use of incentive spirometry ?07/20/2021; Patient seen still remains on high flow oxygen via Vapotherm with easy desaturation with minimal activity. 07/21/2021: Continue with Decadron, outside the window for remdesivir or baricitinib. Will recheck creatinine in the morning, if stable will start him on Lasix -07/22/2021: Creatinine is improved to 1.09, given the crackles on exam we will give him some Lasix. We will continue with Decadron -07/23/2021: Creatinine is stable, will give another dose of IV Lasix today. We will also place Acapella in his room and instruct him on his use. Continues to have crackles on exam -07/24/2021: Creatinine is stable we will continue to monitor. Wean oxygen as able, continue to encourage proning as well as ambulation and pulmonary toileting -07/25/2021: Creatinine is much better today, will plan on a dose of Lasix -07/26/2021: Staying stable on air Vo has 2 more days of Decadron. We will give him a low-dose of Lasix today, sputum culture from 07/22/2021 demonstrated mixed normal isabel -07/27/2021: Will complete Decadron tomorrow. Sputum cultures are negative, continue with Lasix. Continue to encourage pulmonary toileting and getting him out of bed. I do continue to discuss with him laying on his side as he states that he cannot lay prone. He is fully anticoagulated on Eliquis therefore PE is extremely unlikely 2. Physical deconditioning - Requested for PT OT eval and bilingual social worker to assist with discharge planning 3. Hypertension/HLD/paroxysmal A. fib/obesity - Blood pressure controlled, home medications continued with dose adjustment as needed -Patient is on statin therapy, continued at home dose ?On amiodarone as well as systemic anticoagulation with Eliquis -BMI of 35.1, weight loss advised and strategies discussed 4. Gout ?Patient is on allopurinol did continue 5. Hypothyroidism - Patient is on levothyroxine home dose continued 6. EVELIA?resolved 7. Moderate acute malnutrition -evidenced by above tumor energy intake weight loss as well as decreased oral intake less than 75%. Etiology is underlying COVID-19 infection. Plan is to consult dietitian for dietary recommendations DVT: Eliquis Charges/Coding Visit Charges Inpatient E&M: 12179 Subs Hosp L2
[2021-07-27] MEDS: MELATONIN 3 MG TABLET PO (22:47)
[2021-07-27] MEDS: Metoprolol Tartrate 25 MG Tablet PO (22:47)
[2021-07-27] MEDS: Atorvastatin Calcium 20 MG Tablet PO (22:47)
[2021-07-28] VITALS (19 sets, daily range): BP systolic 113–118; BP diastolic 75–78; PULSE 61–88; RESP 18–24; TEMP 36.5–36.8; O2SAT 44–96
[2021-07-28] MEDS: Nystatin Powder 15gm Bottle 1 APPLIC TOPICAL ×3 (05:06→20:26)
[2021-07-28] MEDS: Levothyroxine 88 MCG Tablet PO (05:06)
[2021-07-28 06:13] LABS: Anion Gap 5 (5-15); BUN 36 mg/dL (7-18); Calcium,Total 8.2 mg/dL (8.5-10.1); Chloride 101 mmol/L (98-107); EST Glomerular Filtration Rate 62 mL/min (>60); Est Glom Filt Rate - Afr Amer 75 mL/min (>60); Estimated Creatinine Clearance 50.69 ml/min; Glucose 213 mg/dL (74-106); Phosphorus 3.5 mg/dL (2.5-4.9); Potassium 4.6 mmol/L (3.5-5.1); Sodium Level 136 mmol/L (136-145)
[2021-07-28] MEDS: Furosemide 40 MG/4 ML Vial IV (08:27)
[2021-07-28] MEDS: 0.9% Saline Lock 10 ML Syringe IV (08:28)
[2021-07-28] MEDS: Metoprolol Tartrate 25 MG Tablet PO ×2 (09:10→20:25)
[2021-07-28] MEDS: amLODIPine 5 MG Tablet PO (09:11)
[2021-07-28] MEDS: Lisinopril 40 MG Tablet PO (09:11)
[2021-07-28] MEDS: APIXABAN 5 MG TABLET PO ×2 (09:11→20:25)
[2021-07-28] MEDS: Amiodarone 200 MG Tablet 100 MG PO (09:11)
[2021-07-28] MEDS: Allopurinol 100 MG Tablet PO ×2 (09:11→20:25)
[2021-07-28] MEDS: dexAMETHasone 10 MG/ML Vial 6 MG IV (09:22)
--- NOTE | 2021-07-28 11:06 | PCM.PN.HOSP ---
Subjective Subjective Remained stable. Still on air Vo, continue attempting to wean FiO2 as able Objective Data Objective Data Vital Signs: Vital Signs Temp Pulse Resp BP Pulse Ox 98.1 F 75 18 118/78 95 07/28/21 09:46 07/28/21 09:46 07/28/21 09:46 07/28/21 09:46 07/28/21 09:46 Oxygen Flow Rate (L/min) 50 Oxygen Delivery Method Airvo Weight: 244 lb 4.355 oz Body Mass Index (BMI) 35.1 Intake & Output: Intake and Output for Last 24 Hours 07/27/21 07/28/21 07/29/21 03:59 03:59 03:59 Intake Total 300 / 300 1520 / 1520 100 / 100 Output Total 1675 / 1675 1825 / 1825 250 / 250 Balance -1375 / -1375 -305 / -305 -150 / -150 Medical Nutrition Assessment Dietitian: Malnutrition Criteria Met Start: 07/19/21 14:54 Freq: Status: Active Protocol: Document 07/22/21 11:23 AG (Rec: 07/22/21 11:23 [id number]) Nutrition Malnutrition Evidence of Malnutrition Exists Yes Malnutrition (moderate): Acute Illness/Injury Evidenced By Suboptimal Energy Intake ( Moderate),Weight Loss ( Moderate) Clinical Problem Acute Disease or Injury Related Malnutrition Etiology moderate, acute malnutrition r /t inadequate energy intake d/ t acute illness Signs/Symptoms as evidenced by reported decreased appetite, estimated PO intake meeting <75% of estimated nutritional needs >1 week, unintentional wt loss of 7.1#/2.8% x 13 days Status Active Problem Recommendation Dietitian Recommendations/Changes continue regular diet, 120mL ensure enlive w/ meals d/t acute malnutrition Lab / Micro Data Result Diagrams: 07/27/21 04:52 07/28/21 05:38 Labs: Laboratory Results - last 24 hr 07/28/21 05:38: Sodium 136, Potassium 4.6, Chloride 101, Carbon Dioxide 30.0, Anion Gap 5, BUN 36 H, Creatinine 1.20, Estim Creat Clear Calc 50.69, Est GFR (MDRD) Af Amer 75, Est GFR (MDRD) Non-Af 62, BUN/Creatinine Ratio 30.0 H, Glucose 213 H, Calcium 8.2 L, Phosphorus 3.5, Magnesium 2.0 Micro: Microbiology 07/22/21 10:40 Sputum, Expectorated/Coughed Gram Stain - Final 07/22/21 10:40 Sputum, Expectorated/Coughed Respiratory Culture - Final Mixed normal respiratory isabel. No Streptococcus pneumoniae, beta-hemolytic Streptococcus or Staphylococcus aureus isolated. 07/18/21 17:25 Mucosa - Nasopharyngeal Respiratory Panel (PCR) - Final 07/18/21 20:53 Urine, Clean Catch Legionella Antigen - Final 07/18/21 20:53 Urine, Clean Catch Streptococcus pneumoniae Antigen (M - Final 07/18/21 14:46 Nasal Secretion SARS-CoV-2 Antigen (Rapid) - Final Physical Exam Const alert, oriented x3 and no apparent distress General Appearance: cooperative HEENT normocephalic and moist oral mucous membranes Eyes PERRL, EOMs intact bilaterally and conjunctivae normal Neck supple and no JVD Resp normal respiratory effort, normal air movement, no retractions and no use of accessory muscles Auscultation: diminished lung sounds; Negative for crackles, rales, rhonchi or wheezes Cardio regular rate, regular rhythm, S1 normal heart sound, S2 normal heart sound and no murmurs GI soft to palpation, non-tender and non-distended; Negative for hepatosplenomegaly Extremity no clubbing, cyanosis or edema Skin no rashes or lesions noted Neuro no focal motor deficits and no sensory deficits noted Psych affect normal Appearance: appropriate Assessment & Plan Assessment/Plan (1) COVID-19: (2) Acute respiratory failure with hypoxia: PLAN: 1. Acute hypoxic respiratory failure ?Secondary to SARS-CoV-2 pneumonia, symptoms started on 07/06/2021. Admitted to regular nursing floor where patient is currently being managed with Decadron. Patient is outside the window for remdesivir. Was also placed on supplemental oxygen titrated to keep saturation greater than 90. Also did encourage the use of incentive spirometry ?07/20/2021; Patient seen still remains on high flow oxygen via Vapotherm with easy desaturation with minimal activity. 07/21/2021: Continue with Decadron, outside the window for remdesivir or baricitinib. Will recheck creatinine in the morning, if stable will start him on Lasix -07/22/2021: Creatinine is improved to 1.09, given the crackles on exam we will give him some Lasix. We will continue with Decadron -07/23/2021: Creatinine is stable, will give another dose of IV Lasix today. We will also place Acapella in his room and instruct him on his use. Continues to have crackles on exam -07/24/2021: Creatinine is stable we will continue to monitor. Wean oxygen as able, continue to encourage proning as well as ambulation and pulmonary toileting -07/25/2021: Creatinine is much better today, will plan on a dose of Lasix -07/26/2021: Staying stable on air Vo has 2 more days of Decadron. We will give him a low-dose of Lasix today, sputum culture from 07/22/2021 demonstrated mixed normal isabel -07/27/2021: Will complete Decadron tomorrow. Sputum cultures are negative, continue with Lasix. Continue to encourage pulmonary toileting and getting him out of bed. I do continue to discuss with him laying on his side as he states that he cannot lay prone. He is fully anticoagulated on Eliquis therefore PE is extremely unlikely -07/28/2021: Give another dose of Lasix today as his renal function can handle it. We will continue to try to wean his FiO2 while on air Vo, continue to encourage pulmonary toileting as well as incentive spirometry and Pap. 2. Physical deconditioning - Requested for PT OT eval and nursing home social worker to assist with discharge planning 3. Hypertension/HLD/paroxysmal A. fib/obesity - Blood pressure controlled, home medications continued with dose adjustment as needed -Patient is on statin therapy, continued at home dose ?On amiodarone as well as systemic anticoagulation with Eliquis -BMI of 35.1, weight loss advised and strategies discussed 4. Gout ?Patient is on allopurinol did continue 5. Hypothyroidism - Patient is on levothyroxine home dose continued 6. EVELIA?resolved 7. Moderate acute malnutrition -evidenced by above tumor energy intake weight loss as well as decreased oral intake less than 75%. Etiology is underlying COVID-19 infection. Plan is to consult dietitian for dietary recommendations DVT: Eliquis Charges/Coding Visit Charges Inpatient E&M: 52222 Subs Hosp L2
[2021-07-28] MEDS: MELATONIN 3 MG TABLET PO (20:25)
[2021-07-28] MEDS: Atorvastatin Calcium 20 MG Tablet PO (20:25)
[2021-07-29] VITALS (18 sets, daily range): BP systolic 109–138; BP diastolic 57–82; PULSE 63–93; RESP 18–20; TEMP 36.4–36.9; O2SAT 91–96
[2021-07-29] MEDS: Nystatin Powder 15gm Bottle 1 APPLIC TOPICAL ×3 (06:38→20:42)
[2021-07-29] MEDS: Levothyroxine 88 MCG Tablet PO (06:38)
[2021-07-29 07:11] LABS: Anion Gap 5 (5-15); BUN 38 mg/dL (7-18); BUN/Creat Ratio 35.2 RATIO (10-20); Calcium,Total 8.6 mg/dL (8.5-10.1); Chloride 99 mmol/L (98-107); Creatinine, Serum 1.08 mg/dL (0.70-1.30); EST Glomerular Filtration Rate 70 mL/min (>60); Est Glom Filt Rate - Afr Amer 84 mL/min (>60); Estimated Creatinine Clearance 56.33 ml/min; Glucose 218 mg/dL (74-106); Potassium 4.8 mmol/L (3.5-5.1); Sodium Level 136 mmol/L (136-145)
[2021-07-29] MEDS: 0.9% Saline Lock 10 ML Syringe IV (08:02)
[2021-07-29] MEDS: Furosemide 40 MG/4 ML Vial IV (08:02)
[2021-07-29] MEDS: Allopurinol 100 MG Tablet PO ×2 (08:03→20:42)
[2021-07-29] MEDS: Metoprolol Tartrate 25 MG Tablet PO ×2 (08:03→20:42)
[2021-07-29] MEDS: Amiodarone 200 MG Tablet 100 MG PO (08:03)
[2021-07-29] MEDS: amLODIPine 5 MG Tablet PO (08:04)
[2021-07-29] MEDS: APIXABAN 5 MG TABLET PO ×2 (08:04→20:42)
[2021-07-29] MEDS: Lisinopril 40 MG Tablet PO (08:04)
--- NOTE | 2021-07-29 13:18 | PN.HOSP_ITS ---
Subjective Subjective Doing well, is breathing well but he is here. We are able to wean down his FiO2 slowly. He is now on 44% Objective Data Objective Data Vital Signs: Vital Signs Temp Pulse Resp BP Pulse Ox 98 F 93 18 112/79 92 07/29/21 08:55 07/29/21 11:24 07/29/21 08:55 07/29/21 08:55 07/29/21 09:14 Oxygen Flow Rate (L/min) 50 Oxygen Delivery Method Airvo Weight: 244 lb 1.6 oz Body Mass Index (BMI) 35.1 Intake & Output: Intake and Output for Last 24 Hours 07/28/21 07/29/21 07/30/21 03:59 03:59 03:59 Intake Total 1520 / 1520 1100 / 1100 450 / 450 Output Total 1825 / 1825 1150 / 1150 600 / 600 Balance -305 / -305 -50 / -50 -150 / -150 Medical Nutrition Assessment Dietitian: Malnutrition Criteria Met Start: 07/19/21 14:54 Freq: Status: Active Protocol: Document 07/22/21 11:23 (Rec: 07/22/21 11:23 [id number]) Nutrition Malnutrition Evidence of Malnutrition Exists Yes Malnutrition (moderate): Acute Illness/Injury Evidenced By Suboptimal Energy Intake ( Moderate),Weight Loss ( Moderate) Clinical Problem Acute Disease or Injury Related Malnutrition Etiology moderate, acute malnutrition r /t inadequate energy intake d/ t acute illness Signs/Symptoms as evidenced by reported decreased appetite, estimated PO intake meeting <75% of estimated nutritional needs >1 week, unintentional wt loss of 7.1#/2.8% x 13 days Status Active Problem Recommendation Dietitian Recommendations/Changes continue regular diet, 120mL ensure enlive w/ meals d/t acute malnutrition Lab / Micro Data Result Diagrams: 07/27/21 04:52 07/29/21 06:23 Labs: Laboratory Results - last 24 hr 07/29/21 06:23: Sodium 136, Potassium 4.8, Chloride 99, Carbon Dioxide 32.0, Anion Gap 5, BUN 38 H, Creatinine 1.08, Estim Creat Clear Calc 56.33, Est GFR (MDRD) Af Amer 84, Est GFR (MDRD) Non-Af 70, BUN/Creatinine Ratio 35.2 H, Glucose 218 H, Calcium 8.6 Micro: Microbiology 07/22/21 10:40 Sputum, Expectorated/Coughed Gram Stain - Final 07/22/21 10:40 Sputum, Expectorated/Coughed Respiratory Culture - Final Mixed normal respiratory isabel. No Streptococcus pneumoniae, beta-hemolytic Streptococcus or Staphylococcus aureus isolated. 07/18/21 17:25 Mucosa - Nasopharyngeal Respiratory Panel (PCR) - Final 07/18/21 20:53 Urine, Clean Catch Legionella Antigen - Final 07/18/21 20:53 Urine, Clean Catch Streptococcus pneumoniae Antigen (M - Final 07/18/21 14:46 Nasal Secretion SARS-CoV-2 Antigen (Rapid) - Final Physical Exam Const alert, oriented x3 and no apparent distress General Appearance: cooperative HEENT normocephalic and moist oral mucous membranes Eyes PERRL, EOMs intact bilaterally and conjunctivae normal Neck supple and no JVD Resp normal respiratory effort, normal air movement, no retractions and no use of accessory muscles Auscultation: diminished lung sounds; Negative for crackles, rales, rhonchi or wheezes Cardio regular rate, regular rhythm, S1 normal heart sound, S2 normal heart sound and no murmurs GI soft to palpation, non-tender and non-distended; Negative for hepatosplenomegaly Extremity no clubbing, cyanosis or edema Skin no rashes or lesions noted Neuro no focal motor deficits and no sensory deficits noted Psych affect normal Appearance: appropriate Assessment & Plan Assessment/Plan (1) COVID-19: (2) Acute respiratory failure with hypoxia: PLAN: 1. Acute hypoxic respiratory failure ?Secondary to SARS-CoV-2 pneumonia, symptoms started on 07/06/2021. Admitted to regular nursing floor where patient is currently being managed with Decadron. Patient is outside the window for remdesivir. Was also placed on supplemental oxygen titrated to keep saturation greater than 90. Also did encourage the use of incentive spirometry ?07/20/2021; Patient seen still remains on high flow oxygen via Vapotherm with easy desaturation with minimal activity. 07/21/2021: Continue with Decadron, outside the window for remdesivir or baricitinib. Will recheck creatinine in the morning, if stable will start him on Lasix -07/22/2021: Creatinine is improved to 1.09, given the crackles on exam we will give him some Lasix. We will continue with Decadron -07/23/2021: Creatinine is stable, will give another dose of IV Lasix today. We will also place Acapella in his room and instruct him on his use. Continues to have crackles on exam -07/24/2021: Creatinine is stable we will continue to monitor. Wean oxygen as able, continue to encourage proning as well as ambulation and pulmonary toileting -07/25/2021: Creatinine is much better today, will plan on a dose of Lasix -07/26/2021: Staying stable on air Vo has 2 more days of Decadron. We will give him a low-dose of Lasix today, sputum culture from 07/22/2021 demonstrated mixed normal isabel -07/27/2021: Will complete Decadron tomorrow. Sputum cultures are negative, continue with Lasix. Continue to encourage pulmonary toileting and getting him out of bed. I do continue to discuss with him laying on his side as he states that he cannot lay prone. He is fully anticoagulated on Eliquis therefore PE is extremely unlikely -07/28/2021: Give another dose of Lasix today as his renal function can handle it. We will continue to try to wean his FiO2 while on air Vo, continue to encourage pulmonary toileting as well as incentive spirometry and Pap. -07/29/2021: Continue with as needed Lasix. Continue to wean oxygen as much as possible and continue with pulmonary toileting. 2. Physical deconditioning - Requested for PT OT eval and social media marketing manager to assist with discharge planning 3. Hypertension/HLD/paroxysmal A. fib/obesity - Blood pressure controlled, home medications continued with dose adjustment as needed -Patient is on statin therapy, continued at home dose ?On amiodarone as well as systemic anticoagulation with Eliquis -BMI of 35.1, weight loss advised and strategies discussed 4. Gout ?Patient is on allopurinol did continue 5. Hypothyroidism - Patient is on levothyroxine home dose continued 6. EVELIA?resolved 7. Moderate acute malnutrition -evidenced by above tumor energy intake weight loss as well as decreased oral intake less than 75%. Etiology is underlying COVID-19 infection. Plan is to consult dietitian for dietary recommendations DVT: Eliquis Charges/Coding Visit Charges Inpatient E&M: 86215 Subs Hosp L2
--- NOTE | 2021-07-29 14:39 | CASEMGMT ---
RN EDIS NOTE: O2 is down to 9 l/m. RN CM to room to talk w/pt. Introduced self and role of JAKE RANDHAWA. Pt made aware, once he is medically ready for discharge, home O2 ambulatory testing will be completed to determine if he qualifies for Home o2. Explained process for Home O2 set up w/pt and questions answered. Pt confirms he would like to use [facility] if O2 needed. Green sheet placed on chart w/instructions for Home O2 set up, if pt qualifies for O2. Pt denies having other discharge planning needs or concerns. PT/OT notes reviewed from 07/28 and 07/29. No additional therapy is recommended. Ailyn VÁZQUEZN JAKE CM
--- NOTE | 2021-07-29 16:51 | CASEMGMT ---
Social Work Note SW in to speak with pt to provide support as pt has been at [facility] for 11 days. SW introduced self and role at [facility]. Pt is alert and orientated. Pt states that he is doing good, feeling good, and going in the right direction. Pt states that he was taken off the Airvo today and is doing good. SW offered support to pt. Pt denied additional needs or concerns at this time. Michelle Quintana VP TRANSPORTATION, [employer]
[2021-07-29] MEDS: Atorvastatin Calcium 20 MG Tablet PO (20:42)
[2021-07-29] MEDS: MELATONIN 3 MG TABLET PO (20:42)
[2021-07-30] VITALS (20 sets, daily range): BP systolic 106–125; BP diastolic 61–74; PULSE 63–136; RESP 18–24; TEMP 36.5–36.7; O2SAT 86–95
[2021-07-30] MEDS: Nystatin Powder 15gm Bottle 1 APPLIC TOPICAL ×3 (03:55→20:35)
[2021-07-30] MEDS: Levothyroxine 88 MCG Tablet PO (03:55)
[2021-07-30 06:39] LABS: Hemoglobin 12.1 g/dL (13.0-16.5); Mean Corp Hgb Conc 33.6 g/dL (32-36); Mean Corpuscular Hgb 29.7 pg (27.0-32.0); Mean Corpuscular Volume 88.5 fL (80-94); Mean Platelet Vol. 10.7 fl (6.2-12.0); POSITIVE COUNT YES; POSITIVE MORPHOLOGY YES; Platelet Count 214 K/mm3 (150-450); RBC Distribution Width CV 14.4 % (11.6-14.6); Red Blood Count 4.07 M/mm3 (4.6-6.2)
[2021-07-30 06:41] LABS: Differential Indicated MANUAL DIFF
[2021-07-30 06:53] LABS: Total Cells Counted 100 (MANUAL DIFF)
[2021-07-30 06:55] LABS: Lymphocyte 13 % (19-41); Metamyelocyte 2 % (0-1); Monocyte 10 % (0-10); Myelocyte 2 % (0-0); Neutrophil-Segmented 72 % (47-70); Platelet Estimate ADEQUATE (ADEQ); Promyelocyte 1 % (0-0)
[2021-07-30 06:56] LABS: Absolute Lymphocyte Count 1.43 X10^3/uL (0.83-4.51); Absolute Neutrophil Count 7.9 X10^3/uL (2.0-7.7); Lymphocyte # 1.43 X10^3/ul (0.83-4.51); Neutrophil # 7.91 X10^3/uL (2.7-7.7); Red Cell Morphology NORM C+C NORMAL (NORM C&C)
[2021-07-30 07:06] LABS: Anion Gap 3 (5-15); BUN 38 mg/dL (7-18); BUN/Creat Ratio 33.3 RATIO (10-20); Calcium,Total 8.4 mg/dL (8.5-10.1); Chloride 103 mmol/L (98-107); Creatinine, Serum 1.14 mg/dL (0.70-1.30); EST Glomerular Filtration Rate 66 mL/min (>60); Est Glom Filt Rate - Afr Amer 79 mL/min (>60); Estimated Creatinine Clearance 53.36 ml/min; Glucose 181 mg/dL (74-106); Potassium 4.8 mmol/L (3.5-5.1); Sodium Level 138 mmol/L (136-145)
[2021-07-30] MEDS: Furosemide 40 MG/4 ML Vial IV (08:48)
[2021-07-30] MEDS: Menthol/Lanolin/Calamine/Znox 113 GM Tube 1 APPLIC TOPICAL ×2 (08:48→20:34)
[2021-07-30] MEDS: Amiodarone 200 MG Tablet 100 MG PO (08:49)
[2021-07-30] MEDS: Metoprolol Tartrate 25 MG Tablet PO ×2 (08:49→20:33)
[2021-07-30] MEDS: APIXABAN 5 MG TABLET PO ×2 (08:50→20:35)
[2021-07-30] MEDS: Lisinopril 40 MG Tablet PO (08:51)
[2021-07-30] MEDS: amLODIPine 5 MG Tablet PO (08:51)
[2021-07-30] MEDS: Allopurinol 100 MG Tablet PO ×2 (08:52→20:35)
--- NOTE | 2021-07-30 10:01 | PN.HOSP_ITS ---
Subjective Subjective Slowly weaning his oxygen requirements, down to 8 L currently Objective Data Objective Data Vital Signs: Vital Signs Temp Pulse Resp BP Pulse Ox 97.8 F 75 18 110/70 94 07/30/21 08:39 07/30/21 08:49 07/30/21 08:39 07/30/21 08:39 07/30/21 08:39 Oxygen Flow Rate (L/min) 8 Oxygen Delivery Method Nasal Cannula Weight: 243 lb 14.4 oz Body Mass Index (BMI) 35.1 Intake & Output: Intake and Output for Last 24 Hours 07/29/21 07/30/21 07/31/21 03:59 03:59 03:59 Intake Total 1100 / 1100 900 / 900 Output Total 1150 / 1150 1100 / 1100 Balance -50 / -50 -200 / -200 Medical Nutrition Assessment Dietitian: Malnutrition Criteria Met Start: 07/19/21 14:54 Freq: Status: Active Protocol: Document 07/22/21 11:23 (Rec: 07/22/21 11:23 [id number]) Nutrition Malnutrition Evidence of Malnutrition Exists Yes Malnutrition (moderate): Acute Illness/Injury Evidenced By Suboptimal Energy Intake ( Moderate),Weight Loss ( Moderate) Clinical Problem Acute Disease or Injury Related Malnutrition Etiology moderate, acute malnutrition r /t inadequate energy intake d/ t acute illness Signs/Symptoms as evidenced by reported decreased appetite, estimated PO intake meeting <75% of estimated nutritional needs >1 week, unintentional wt loss of 7.1#/2.8% x 13 days Status Active Problem Recommendation Dietitian Recommendations/Changes continue regular diet, 120mL ensure enlive w/ meals d/t acute malnutrition Lab / Micro Data Result Diagrams: 07/30/21 06:04 07/30/21 06:04 Labs: Laboratory Results - last 24 hr 07/30/21 06:04: WBC 11.0, RBC 4.07 L, Hgb 12.1 L, Hct 36.0 L, MCV 88.5, MCH 29.7, MCHC 33.6, RDW Std Deviation 46.0 H, RDW Coeff of Arjun 14.4, Plt Count 214, MPV 10.7, Neut % (Auto) Not Reportable, Absolute Neuts (auto) 7.9 H, Absolute Lymphs (auto) 1.43, Total Counted 100, Neutrophils % (Manual) 72 H, Lymphocytes % (Manual) 13 L, Monocytes % (Manual) 10, Metamyelocytes % 2 H, Myelocytes % 2 H , Promyelocytes % 1 H, Diff Path Review May foll, Platelet Estimate ADEQUATE, RBC Morphology NORM C+C 07/30/21 06:04: Sodium 138, Potassium 4.8, Chloride 103, Carbon Dioxide 32.0, Anion Gap 3 L, BUN 38 H, Creatinine 1.14, Estim Creat Clear Calc 53.36, Est GFR (MDRD) Af Amer 79, Est GFR (MDRD) Non-Af 66, BUN/Creatinine Ratio 33.3 H, Glucose 181 H, Calcium 8.4 L Micro: Microbiology 07/22/21 10:40 Sputum, Expectorated/Coughed Gram Stain - Final 07/22/21 10:40 Sputum, Expectorated/Coughed Respiratory Culture - Final Mixed normal respiratory isabel. No Streptococcus pneumoniae, beta-hemolytic Streptococcus or Staphylococcus aureus isolated. 07/18/21 17:25 Mucosa - Nasopharyngeal Respiratory Panel (PCR) - Final 07/18/21 20:53 Urine, Clean Catch Legionella Antigen - Final 07/18/21 20:53 Urine, Clean Catch Streptococcus pneumoniae Antigen (M - Final 07/18/21 14:46 Nasal Secretion SARS-CoV-2 Antigen (Rapid) - Final Physical Exam Const alert, oriented x3 and no apparent distress General Appearance: cooperative HEENT normocephalic and moist oral mucous membranes Eyes PERRL, EOMs intact bilaterally and conjunctivae normal Neck supple and no JVD Resp normal respiratory effort, normal air movement, no retractions and no use of accessory muscles Auscultation: diminished lung sounds; Negative for crackles, rales, rhonchi or wheezes Cardio regular rate, regular rhythm, S1 normal heart sound, S2 normal heart sound and no murmurs GI soft to palpation, non-tender and non-distended; Negative for hepatosplenomegaly Extremity no clubbing, cyanosis or edema Skin no rashes or lesions noted Neuro no focal motor deficits and no sensory deficits noted Psych affect normal Appearance: appropriate Assessment & Plan Assessment/Plan (1) COVID-19: (2) Acute respiratory failure with hypoxia: PLAN: 1. Acute hypoxic respiratory failure ?Secondary to SARS-CoV-2 pneumonia, symptoms started on 07/06/2021. Admitted to regular nursing floor where patient is currently being managed with Decadron. Patient is outside the window for remdesivir. Was also placed on supplemental oxygen titrated to keep saturation greater than 90. Also did encourage the use of incentive spirometry ?07/20/2021; Patient seen still remains on high flow oxygen via Vapotherm with easy desaturation with minimal activity. 07/21/2021: Continue with Decadron, outside the window for remdesivir or baricitinib. Will recheck creatinine in the morning, if stable will start him on Lasix -07/22/2021: Creatinine is improved to 1.09, given the crackles on exam we will give him some Lasix. We will continue with Decadron -07/23/2021: Creatinine is stable, will give another dose of IV Lasix today. We will also place Acapella in his room and instruct him on his use. Continues to have crackles on exam -07/24/2021: Creatinine is stable we will continue to monitor. Wean oxygen as able, continue to encourage proning as well as ambulation and pulmonary toileting -07/25/2021: Creatinine is much better today, will plan on a dose of Lasix -07/26/2021: Staying stable on air Vo has 2 more days of Decadron. We will give him a low-dose of Lasix today, sputum culture from 07/22/2021 demonstrated mixed normal isabel -07/27/2021: Will complete Decadron tomorrow. Sputum cultures are negative, continue with Lasix. Continue to encourage pulmonary toileting and getting him out of bed. I do continue to discuss with him laying on his side as he states that he cannot lay prone. He is fully anticoagulated on Eliquis therefore PE is extremely unlikely -07/28/2021: Give another dose of Lasix today as his renal function can handle it. We will continue to try to wean his FiO2 while on air Vo, continue to encourage pulmonary toileting as well as incentive spirometry and Pap. -07/29/2021: Continue with as needed Lasix. Continue to wean oxygen as much as possible and continue with pulmonary toileting. -07/30/2021: Continue with as needed Lasix. Continue to wean oxygen as much as possible and continue to encourage pulmonary toileting. Currently down to 8 L nasal cannula discussed with him that he needs to be below 6 L with ambulation before he can go home 2. Physical deconditioning - Requested for PT OT eval and social worker health services to assist with discharge planning 3. Hypertension/HLD/paroxysmal A. fib/obesity - Blood pressure controlled, home medications continued with dose adjustment as needed -Patient is on statin therapy, continued at home dose ?On amiodarone as well as systemic anticoagulation with Eliquis -BMI of 35.1, weight loss advised and strategies discussed 4. Gout ?Patient is on allopurinol did continue 5. Hypothyroidism - Patient is on levothyroxine home dose continued 6. EVELIA?resolved 7. Moderate acute malnutrition -evidenced by above tumor energy intake weight loss as well as decreased oral intake less than 75%. Etiology is underlying COVID-19 infection. Plan is to consult dietitian for dietary recommendations DVT: Eliquis Charges/Coding Visit Charges Inpatient E&M: 95137 Subs Hosp L2
--- NOTE | 2021-07-30 20:29 | EKG12_ITS ---
Test Reason : TACHY Blood Pressure : / mmHG Vent. Rate : 137 BPM Atrial Rate : 163 BPM P-R Int : 000 ms QRS Dur : 084 ms QT Int : 322 ms P-R-T Axes : 000 -38 010 degrees QTc Int : 486 ms Atrial fibrillation Left axis deviation Inferior infarct , age undetermined Abnormal ECG When compared with ECG of 18-JUL-2021 14:33, Atrial fibrillation has replaced Sinus rhythm Vent. rate has increased BY 55 BPM Inferior infarct is now Present T wave amplitude has increased in Anterior leads Confirmed by ABHISHEK SEGURA, BRIJESH ([id number]), photographic editor HANNA MELENDEZ ([id number]) on 08/02/2021 12:30:27 P M Referred By: DR KRISHNA Confirmed By:ROWDY WEISS MD
[2021-07-30] MEDS: Atorvastatin Calcium 20 MG Tablet PO (20:34)
[2021-07-30] MEDS: Metoprolol Tartrate 5 MG/5 ML Vial IV (21:04)
[2021-07-30] MEDS: MELATONIN 3 MG TABLET PO (23:33)
[2021-07-31] VITALS (12 sets, daily range): BP systolic 98–110; BP diastolic 63–71; PULSE 67–115; RESP 18–20; TEMP 36.6; O2SAT 93–97
[2021-07-31] MEDS: Nystatin Powder 15gm Bottle 1 APPLIC TOPICAL ×3 (05:37→21:50)
[2021-07-31] MEDS: Levothyroxine 88 MCG Tablet PO (05:37)
[2021-07-31 06:42] LABS: Anion Gap 6 (5-15); BUN 41 mg/dL (7-18); BUN/Creat Ratio 34.5 RATIO (10-20); Calcium,Total 8.4 mg/dL (8.5-10.1); Chloride 103 mmol/L (98-107); Creatinine, Serum 1.19 mg/dL (0.70-1.30); EST Glomerular Filtration Rate 62 mL/min (>60); Est Glom Filt Rate - Afr Amer 76 mL/min (>60); Estimated Creatinine Clearance 51.12 ml/min; Glucose 216 mg/dL (74-106); Potassium 4.2 mmol/L (3.5-5.1); Sodium Level 139 mmol/L (136-145)
[2021-07-31] MEDS: Metoprolol Tartrate 25 MG Tablet PO (08:15)
--- NOTE | 2021-07-31 09:47 | PN.HOSP_ITS ---
Subjective Subjective Doing well, maintaining his oxygen saturations on his 9 L nasal cannula. He did have a low bit of a setback last night when he went into A. fib with RVR that resolved with a single dose of Lopressor. We will continue with his home medications Objective Data Objective Data Vital Signs: Vital Signs Temp Pulse Resp BP Pulse Ox 97.9 F 97 18 110/70 93 07/31/21 08:09 07/31/21 08:15 07/31/21 08:09 07/31/21 08:09 07/31/21 09:20 Oxygen Flow Rate (L/min) 9 Oxygen Delivery Method Nasal Cannula Weight: 243 lb 9.773 oz Body Mass Index (BMI) 35.1 Intake & Output: Intake and Output for Last 24 Hours 07/30/21 07/31/21 08/01/21 03:59 03:59 03:59 Intake Total 900 / 900 50 / 50 0 / 0 Output Total 1100 / 1100 125 / 125 250 / 250 Balance -200 / -200 -75 / -75 -250 / -250 Medical Nutrition Assessment Dietitian: Malnutrition Criteria Met Start: 07/19/21 14:54 Freq: Status: Active Protocol: Document 07/22/21 11:23 AG (Rec: 07/22/21 11:23 [id number]) Nutrition Malnutrition Evidence of Malnutrition Exists Yes Malnutrition (moderate): Acute Illness/Injury Evidenced By Suboptimal Energy Intake ( Moderate),Weight Loss ( Moderate) Clinical Problem Acute Disease or Injury Related Malnutrition Etiology moderate, acute malnutrition r /t inadequate energy intake d/ t acute illness Signs/Symptoms as evidenced by reported decreased appetite, estimated PO intake meeting <75% of estimated nutritional needs >1 week, unintentional wt loss of 7.1#/2.8% x 13 days Status Active Problem Recommendation Dietitian Recommendations/Changes continue regular diet, 120mL ensure enlive w/ meals d/t acute malnutrition Lab / Micro Data Result Diagrams: 07/30/21 06:04 07/31/21 05:10 Labs: Laboratory Results - last 24 hr 07/31/21 05:10: Sodium 139, Potassium 4.2, Chloride 103, Carbon Dioxide 30.0, Anion Gap 6, BUN 41 H, Creatinine 1.19, Estim Creat Clear Calc 51.12, Est GFR (MDRD) Af Amer 76, Est GFR (MDRD) Non-Af 62, BUN/Creatinine Ratio 34.5 H, Glucose 216 H, Calcium 8.4 L Micro: Microbiology 07/22/21 10:40 Sputum, Expectorated/Coughed Gram Stain - Final 07/22/21 10:40 Sputum, Expectorated/Coughed Respiratory Culture - Final Mixed normal respiratory isabel. No Streptococcus pneumoniae, beta-hemolytic Streptococcus or Staphylococcus aureus isolated. 07/18/21 17:25 Mucosa - Nasopharyngeal Respiratory Panel (PCR) - Final 07/18/21 20:53 Urine, Clean Catch Legionella Antigen - Final 07/18/21 20:53 Urine, Clean Catch Streptococcus pneumoniae Antigen (M - Final 07/18/21 14:46 Nasal Secretion SARS-CoV-2 Antigen (Rapid) - Final Physical Exam Const alert, oriented x3 and no apparent distress General Appearance: cooperative HEENT normocephalic and moist oral mucous membranes Eyes PERRL, EOMs intact bilaterally and conjunctivae normal Neck supple and no JVD Resp normal respiratory effort, normal air movement, no retractions and no use of accessory muscles Auscultation: diminished lung sounds; Negative for crackles, rales, rhonchi or wheezes Cardio regular rate, regular rhythm, S1 normal heart sound, S2 normal heart sound and no murmurs GI soft to palpation, non-tender and non-distended; Negative for hepatosplenomegaly Extremity no clubbing, cyanosis or edema Skin no rashes or lesions noted Neuro no focal motor deficits and no sensory deficits noted Psych affect normal Appearance: appropriate Assessment & Plan Assessment/Plan (1) COVID-19: (2) Acute respiratory failure with hypoxia: PLAN: 1. Acute hypoxic respiratory failure ?Secondary to SARS-CoV-2 pneumonia, symptoms started on 07/06/2021. Admitted to regular nursing floor where patient is currently being managed with Decadron. Patient is outside the window for remdesivir. Was also placed on supplemental oxygen titrated to keep saturation greater than 90. Also did encourage the use of incentive spirometry ?07/20/2021; Patient seen still remains on high flow oxygen via Vapotherm with e asy desaturation with minimal activity. 07/21/2021: Continue with Decadron, outside the window for remdesivir or baricitinib. Will recheck creatinine in the morning, if stable will start him on Lasix -07/22/2021: Creatinine is improved to 1.09, given the crackles on exam we will give him some Lasix. We will continue with Decadron -07/23/2021: Creatinine is stable, will give another dose of IV Lasix today. We will also place Acapella in his room and instruct him on his use. Continues to have crackles on exam -07/24/2021: Creatinine is stable we will continue to monitor. Wean oxygen as able, continue to encourage proning as well as ambulation and pulmonary toileting -07/25/2021: Creatinine is much better today, will plan on a dose of Lasix -07/26/2021: Staying stable on air Vo has 2 more days of Decadron. We will give him a low-dose of Lasix today, sputum culture from 07/22/2021 demonstrated mixed normal isabel -07/27/2021: Will complete Decadron tomorrow. Sputum cultures are negative, continue with Lasix. Continue to encourage pulmonary toileting and getting him out of bed. I do continue to discuss with him laying on his side as he states that he cannot lay prone. He is fully anticoagulated on Eliquis therefore PE is extremely unlikely -07/28/2021: Give another dose of Lasix today as his renal function can handle it. We will continue to try to wean his FiO2 while on air Vo, continue to encourage pulmonary toileting as well as incentive spirometry and Pap. -07/29/2021: Continue with as needed Lasix. Continue to wean oxygen as much as possible and continue with pulmonary toileting. -07/30/2021: Continue with as needed Lasix. Continue to wean oxygen as much as possible and continue to encourage pulmonary toileting. Currently down to 8 L nasal cannula discussed with him that he needs to be below 6 L with ambulation before he can go home -07/31/2021: Maintaining oxygen saturations at 8 or 9 L. We will give him another dose of Lasix this morning and may add an additional dose this afternoon 2. Physical deconditioning - Requested for PT OT eval and psychiatric social worker supervisor to assist with discharge planning 3. Hypertension/HLD/paroxysmal A. fib/obesity - Blood pressure controlled, home medications continued with dose adjustment as needed -Patient is on statin therapy, continued at home dose ?On amiodarone as well as systemic anticoagulation with Eliquis -BMI of 35.1, weight loss advised and strategies discussed -07/31/2021: He went into A. fib overnight and had to be given a dose of Lopressor 1 time. We will continue with his home metoprolol as well as his amiodarone. If he continues to have issues with tachycardia may need to increase his metoprolol to 50 twice daily 4. Gout ?Patient is on allopurinol did continue 5. Hypothyroidism - Patient is on levothyroxine home dose continued 6. EVELIA?resolved 7. Moderate acute malnutrition -evidenced by above tumor energy intake weight loss as well as decreased oral intake less than 75%. Etiology is underlying COVID-19 infection. Plan is to consult dietitian for dietary recommendations DVT: Sudhakar Charges/Coding Visit Charges Inpatient E&M: 78674 Subs Hosp L2
[2021-07-31] MEDS: Menthol/Lanolin/Calamine/Znox 113 GM Tube 1 APPLIC TOPICAL (10:14)
[2021-07-31] MEDS: Amiodarone 200 MG Tablet 100 MG PO (10:15)
[2021-07-31] MEDS: APIXABAN 5 MG TABLET PO ×2 (10:15→21:50)
[2021-07-31] MEDS: Allopurinol 100 MG Tablet PO ×2 (10:15→21:51)
[2021-07-31] MEDS: amLODIPine 5 MG Tablet PO (10:15)
[2021-07-31] MEDS: Lisinopril 40 MG Tablet PO (10:15)
[2021-07-31] MEDS: Furosemide 40 MG/4 ML Vial IV (10:17)
[2021-07-31] MEDS: MELATONIN 3 MG TABLET PO (21:50)
[2021-07-31] MEDS: Atorvastatin Calcium 20 MG Tablet PO (21:51)
[2021-08-01] VITALS (14 sets, daily range): BP systolic 110–122; BP diastolic 62–74; PULSE 73–87; RESP 18–20; TEMP 36.6; O2SAT 93–98
[2021-08-01] MEDS: Levothyroxine 88 MCG Tablet PO (05:41)
[2021-08-01] MEDS: Nystatin Powder 15gm Bottle 1 APPLIC TOPICAL ×3 (05:42→22:11)
[2021-08-01 05:45] LABS: Hematocrit 35.7 % (40-54); Hemoglobin 11.6 g/dL (13.0-16.5); Mean Corp Hgb Conc 32.5 g/dL (32-36); Mean Corpuscular Hgb 29.4 pg (27.0-32.0); Mean Corpuscular Volume 90.4 fL (80-94); Mean Platelet Vol. 10.8 fl (6.2-12.0); POSITIVE COUNT YES; POSITIVE MORPHOLOGY YES; Platelet Count 174 K/mm3 (150-450); RBC Distribution Width CV 14.6 % (11.6-14.6); RBC Distribution Width SD 48.6 fl (35.1-43.9); Red Blood Count 3.95 M/mm3 (4.6-6.2); White Blood Count 9.4 K/mm3 (4.4-11.0)
[2021-08-01 06:34] LABS: Differential Indicated MANUAL DIFF
[2021-08-01 06:45] LABS: Anion Gap 5 (5-15); BUN 39 mg/dL (7-18); BUN/Creat Ratio 33.1 RATIO (10-20); Calcium,Total 8.2 mg/dL (8.5-10.1); Chloride 102 mmol/L (98-107); Creatinine, Serum 1.18 mg/dL (0.70-1.30); EST Glomerular Filtration Rate 63 mL/min (>60); Est Glom Filt Rate - Afr Amer 76 mL/min (>60); Estimated Creatinine Clearance 51.55 ml/min; Glucose 177 mg/dL (74-106); Potassium 4.4 mmol/L (3.5-5.1); Sodium Level 140 mmol/L (136-145)
[2021-08-01 07:22] LABS: Absolute Lymphocyte Count 1.79 X10^3/uL (0.83-4.51); Absolute Neutrophil Count 6.4 X10^3/uL (2.0-7.7)
[2021-08-01 07:23] LABS: Atypical Lymphocyte 1+ %; Eosinophil 1 % (0-5); Lymphocyte 19 % (19-41); Monocyte 10 % (0-10); Myelocyte 2 % (0-0); Neutrophil-Band 8 % (0-5); Neutrophil-Segmented 60 % (47-70); Platelet Estimate ADEQUATE (ADEQ); Red Cell Morphology NORM C+C NORMAL (NORM C&C)
[2021-08-01] MEDS: Menthol/Lanolin/Calamine/Znox 113 GM Tube 1 APPLIC TOPICAL ×2 (09:55→22:11)
[2021-08-01] MEDS: APIXABAN 5 MG TABLET PO ×2 (09:56→22:13)
[2021-08-01] MEDS: Metoprolol Tartrate 25 MG Tablet PO ×2 (09:56→22:13)
[2021-08-01] MEDS: Amiodarone 200 MG Tablet 100 MG PO (09:56)
[2021-08-01] MEDS: amLODIPine 5 MG Tablet PO (09:57)
[2021-08-01] MEDS: Lisinopril 40 MG Tablet PO (09:57)
[2021-08-01] MEDS: Allopurinol 100 MG Tablet PO ×2 (09:57→22:13)
--- NOTE | 2021-08-01 12:01 | PN.HOSP_ITS ---
Subjective Subjective Patient seen and examined. He had no active complaints. He had an uneventful night. He is on 8 L of oxygen. Review of systems otherwise negative. He has remained hemodynamically stable. Objective Data Objective Data Vital Signs: Vital Signs Temp Pulse Resp BP Pulse Ox 97.8 F 76 18 110/63 97 08/01/21 08:40 08/01/21 10:00 08/01/21 08:40 08/01/21 08:40 08/01/21 08:40 Oxygen Flow Rate (L/min) 8 Oxygen Delivery Method Nasal Cannula Weight: 245 lb 5.992 oz Body Mass Index (BMI) 35.1 Intake & Output: Intake and Output for Last 24 Hours 07/30/21 07/31/21 08/01/21 23:59 23:59 23:59 Intake Total 50 / 50 0 / 300 300 / 300 Output Total 125 / 125 925 / 1350 575 / 575 Balance -75 / -75 -925 / -1050 -275 / -275 Medical Nutrition Assessment Dietitian: Malnutrition Criteria Met Start: 07/19/21 14:54 Freq: Status: Active Protocol: Document 07/22/21 11:23 AG (Rec: 07/22/21 11:23 [id number]) Nutrition Malnutrition Evidence of Malnutrition Exists Yes Malnutrition (moderate): Acute Illness/Injury Evidenced By Suboptimal Energy Intake ( Moderate),Weight Loss ( Moderate) Clinical Problem Acute Disease or Injury Related Malnutrition Etiology moderate, acute malnutrition r /t inadequate energy intake d/ t acute illness Signs/Symptoms as evidenced by reported decreased appetite, estimated PO intake meeting <75% of estimated nutritional needs >1 week, unintentional wt loss of 7.1#/2.8% x 13 days Status Active Problem Recommendation Dietitian Recommendations/Changes continue regular diet, 120mL ensure enlive w/ meals d/t acute malnutrition Lab / Micro Data Result Diagrams: 08/01/21 04:46 08/01/21 04:46 Labs: Laboratory Results - last 24 hr 08/01/21 04:46: WBC 9.4, RBC 3.95 L, Hgb 11.6 L, Hct 35.7 L, MCV 90.4, MCH 29.4, MCHC 32.5, RDW Std Deviation 48.6 H, RDW Coeff of Arjun 14.6, Plt Count 174, MPV 10.8, Neut % (Auto) Not Reportable, Absolute Neuts (auto) 6.4, Absolute Lymphs (auto) 1.79, Neutrophils % (Manual) 60, Band Neutrophils % 8 H, Lymphocytes % (Manual) 19, Monocytes % (Manual) 10, Eosinophils % (Manual) 1, Myelocytes % 2 H , Diff Path Review May foll, Atypical Lymphocytes 1+, Platelet Estimate ADEQUATE, RBC Morphology NORM C+C 08/01/21 04:46: Sodium 140, Potassium 4.4, Chloride 102, Carbon Dioxide 33.0 H, Anion Gap 5, BUN 39 H, Creatinine 1.18, Estim Creat Clear Calc 51.55, Est GFR (MDRD) Af Amer 76, Est GFR (MDRD) Non-Af 63, BUN/Creatinine Ratio 33.1 H, Glucose 177 H, Calcium 8.2 L Micro: Microbiology 07/22/21 10:40 Sputum, Expectorated/Coughed Gram Stain - Final 07/22/21 10:40 Sputum, Expectorated/Coughed Respiratory Culture - Final Mixed normal respiratory isabel. No Streptococcus pneumoniae, beta-hemolytic Streptococcus or Staphylococcus aureus isolated. 07/18/21 17:25 Mucosa - Nasopharyngeal Respiratory Panel (PCR) - Final 07/18/21 20:53 Urine, Clean Catch Legionella Antigen - Final 07/18/21 20:53 Urine, Clean Catch Streptococcus pneumoniae Antigen (M - Final 07/18/21 14:46 Nasal Secretion SARS-CoV-2 Antigen (Rapid) - Final Physical Exam Const oriented x3 and no apparent distress Exam Limitations: no limitations HEENT head/scalp atraumatic and moist oral mucous membranes Head and Scalp: normocephalic Eyes PERRL, EOMs intact bilaterally and conjunctivae normal Neck no lymphadenopathy Resp Resp Narrative: Diminished breath sounds bibasilarly. No wheezes or crackles. On 8 L of oxygen. Cardio regular rate, regular rhythm, S1 normal heart sound, S2 normal heart sound and no murmurs GI normal to inspection, nondistended, normoactive bowel sounds, soft to palpation, non-tender and non-distended Extremity normal to inspection, full ROM and no clubbing, cyanosis or edema Peripheral Pulses: Yes pulses 2+ throughout Skin no rashes or lesions noted Neuro oriented x3 and CN's II-XII intact bilaterally Sensorium / Orientation: awake and alert Psych affect normal Assessment & Plan Assessment/Plan (1) COVID-19: (2) Acute respiratory failure with hypoxia: PLAN: #Acute hypoxic respiratory failure due to COVID 19 pneumonia * currently on 8L of oxygen * completed a course of decadron and remdesivir. * weaned off AirVo to oxygen and now on 8L. Didnt receive remdesivir or ba ricitinib as he was out of the window for both. * sputum culutres were negative * titrate oxygen to maintain sats >90% * breathing treatment with bronchodilators. * lasix prn to maintain euvolemic status * * #Paroxysmal afib * currently rate controlled. On amiodarone * Had a transient episode of A. fib with RVR on 07/31/2021 but this was aborted with IV Lopressor x1. * Continue amiodarone and metoprolol as well as Eliquis. * #Debility due to acute hypoxic respiratory failure due to COVID-19 pneumonia * PT OT on board. Fall precautions. #Hyperlipidemia: On statin #Hypertension: On metoprolol #Obesity: BMI is 35.2. Complicates acute care, expected recovery and prognosis. Counseled on DASH diet. DVT prophylaxis: On Eliquis Charges/Coding Visit Charges Inpatient E&M: 97393 Subs Hosp L2
[2021-08-01 12:44] LABS: Pathologist Review Reviewed
[2021-08-01 13:43] LABS: Pathologist Review Reviewed
[2021-08-01] MEDS: MELATONIN 3 MG TABLET PO (22:13)
[2021-08-01] MEDS: Atorvastatin Calcium 20 MG Tablet PO (22:13)
[2021-08-02] VITALS (18 sets, daily range): BP systolic 107–136; BP diastolic 60–71; PULSE 69–79; RESP 16–18; TEMP 36.4–36.8; O2SAT 85–100
[2021-08-02] MEDS: Nystatin Powder 15gm Bottle 1 APPLIC TOPICAL ×3 (05:32→21:03)
[2021-08-02] MEDS: Levothyroxine 88 MCG Tablet PO (05:32)
[2021-08-02 07:30] LABS: Hematocrit 33.7 % (40-54); Hemoglobin 11.2 g/dL (13.0-16.5); Mean Corp Hgb Conc 33.2 g/dL (32-36); Mean Corpuscular Volume 90.3 fL (80-94); Mean Platelet Vol. 10.9 fl (6.2-12.0); POSITIVE COUNT YES; POSITIVE MORPHOLOGY YES; Platelet Count 156 K/mm3 (150-450); RBC Distribution Width CV 14.9 % (11.6-14.6); RBC Distribution Width SD 49.1 fl (35.1-43.9); Red Blood Count 3.73 M/mm3 (4.6-6.2); White Blood Count 9.1 K/mm3 (4.4-11.0)
[2021-08-02 07:49] LABS: Differential Indicated MANUAL DIFF
[2021-08-02 07:59] LABS: Anion Gap 3 (5-15); BUN 26 mg/dL (7-18); Calcium,Total 8.3 mg/dL (8.5-10.1); Chloride 103 mmol/L (98-107); EST Glomerular Filtration Rate 76 mL/min (>60); Est Glom Filt Rate - Afr Amer 92 mL/min (>60); Estimated Creatinine Clearance 60.83 ml/min; Glucose 157 mg/dL (74-106); Potassium 4.4 mmol/L (3.5-5.1); Sodium Level 139 mmol/L (136-145)
[2021-08-02] MEDS: Metoprolol Tartrate 25 MG Tablet PO ×2 (08:25→21:04)
[2021-08-02] MEDS: Allopurinol 100 MG Tablet PO ×2 (08:25→21:05)
[2021-08-02] MEDS: amLODIPine 5 MG Tablet PO (08:25)
[2021-08-02] MEDS: Amiodarone 200 MG Tablet 100 MG PO (08:25)
[2021-08-02] MEDS: Lisinopril 40 MG Tablet PO (08:25)
[2021-08-02] MEDS: APIXABAN 5 MG TABLET PO ×2 (08:26→21:05)
[2021-08-02] MEDS: Menthol/Lanolin/Calamine/Znox 113 GM Tube 1 APPLIC TOPICAL (08:28)
[2021-08-02 08:33] LABS: Eosinophil 4 % (0-5); Lymphocyte 24 % (19-41); Metamyelocyte 2 % (0-1); Monocyte 10 % (0-10); Myelocyte 1 % (0-0); Neutrophil-Segmented 59 % (47-70); Platelet Estimate ADEQUATE (ADEQ); Red Cell Morphology NORM C+C NORMAL (NORM C&C); Total Cells Counted 100 (MANUAL DIFF)
[2021-08-02 08:36] LABS: Absolute Neutrophil Count 5.4 X10^3/uL (2.0-7.7)
--- NOTE | 2021-08-02 12:17 | PN.HOSP_ITS ---
Subjective Subjective Patient seen and examined. He had no active complaints overnight. REview of systems was otherwise negative. He is on 5L of oxygen at time of review. Objective Data Objective Data Vital Signs: Vital Signs Temp Pulse Resp BP Pulse Ox 97.6 F L 72 16 121/71 H 89 08/02/21 08:21 08/02/21 08:25 08/02/21 08:21 08/02/21 08:21 08/02/21 11:44 Oxygen Flow Rate (L/min) [ 6 AMBULATING with Oxygen #3] Oxygen Flow Rate (L/min) [ 4 AMBULATING with Oxygen #2] Oxygen Flow Rate (L/min) [ 2 AMBULATING with Oxygen #1] Oxygen Flow Rate (L/min) [At 2 REST with Oxygen] Oxygen Flow Rate (L/min) 5 Oxygen Delivery Method Nasal Cannula Weight: 244 lb 11.41 oz Body Mass Index (BMI) 35.1 Intake & Output: Intake and Output for Last 24 Hours 07/31/21 08/01/21 08/02/21 23:59 23:59 23:59 Intake Total 0 / 300 300 / 300 Output Total 925 / 1350 1075 / 1075 Balance -925 / -1050 -775 / -775 Medical Nutrition Assessment Dietitian: Malnutrition Criteria Met Start: 07/19/21 14:54 Freq: Status: Active Protocol: Document 07/22/21 11:23 (Rec: 07/22/21 11:23 [id number]) Nutrition Malnutrition Evidence of Malnutrition Exists Yes Malnutrition (moderate): Acute Illness/Injury Evidenced By Suboptimal Energy Intake ( Moderate),Weight Loss ( Moderate) Clinical Problem Acute Disease or Injury Related Malnutrition Etiology moderate, acute malnutrition r /t inadequate energy intake d/ t acute illness Signs/Symptoms as evidenced by reported decreased appetite, estimated PO intake meeting <75% of estimated nutritional needs >1 week, unintentional wt loss of 7.1#/2.8% x 13 days Status Active Problem Recommendation Dietitian Recommendations/Changes continue regular diet, 120mL ensure enlive w/ meals d/t acute malnutrition Lab / Micro Data Result Diagrams: 08/02/21 06:44 08/02/21 06:44 Labs: Laboratory Results - last 24 hr 07/30/21 06:04: Diff Path Review Reviewed 08/01/21 04:46: Diff Path Review Reviewed 08/02/21 06:44: WBC 9.1, RBC 3.73 L, Hgb 11.2 L, Hct 33.7 L, MCV 90.3, MCH 30.0, MCHC 33.2, RDW Std Deviation 49.1 H, RDW Coeff of Arjun 14.9 H, Plt Count 156, MPV 10.9, Neut % (Auto) Not Reportable, Absolute Neuts (auto) 5.4, Absolute Lymphs (auto) 2.20, Total Counted 100, Neutrophils % (Manual) 59, Lymphocytes % (Manual) 24, Monocytes % (Manual) 10, Eosinophils % (Manual) 4, Metamyelocytes % 2 H, Myelocytes % 1 H, Diff Path Review January, Platelet Estimate ADEQUATE, RBC Morphology NORM C+C 08/02/21 06:44: Sodium 139, Potassium 4.4, Chloride 103, Carbon Dioxide 33.0 H, Anion Gap 3 L, BUN 26 H, Creatinine 1.00, Estim Creat Clear Calc 60.83, Est GFR (MDRD) Af Amer 92, Est GFR (MDRD) Non-Af 76, BUN/Creatinine Ratio 26.0 H, Glucose 157 H, Calcium 8.3 L Micro: Microbiology 07/22/21 10:40 Sputum, Expectorated/Coughed Gram Stain - Final 07/22/21 10:40 Sputum, Expectorated/Coughed Respiratory Culture - Final Mixed normal respiratory isabel. No Streptococcus pneumoniae, beta-hemolytic Streptococcus or Staphylococcus aureus isolated. 07/18/21 17:25 Mucosa - Nasopharyngeal Respiratory Panel (PCR) - Final 07/18/21 20:53 Urine, Clean Catch Legionella Antigen - Final 07/18/21 20:53 Urine, Clean Catch Streptococcus pneumoniae Antigen (M - Final 07/18/21 14:46 Nasal Secretion SARS-CoV-2 Antigen (Rapid) - Final Physical Exam Const alert, oriented x3 and no apparent distress General Appearance: cooperative Exam Limitations: no limitations HEENT normocephalic, head/scalp atraumatic and moist oral mucous membranes Head and Scalp: normocephalic Eyes PERRL, EOMs intact bilaterally, conjunctivae normal and no scleral icterus Neck full ROM, no lymphadenopathy, supple and no JVD General: trachea midline Resp normal air movement Resp Narrative: Diminished breath sounds bibasilarly. No wheezes or crackles. On 5 L of oxygen. Effort and Inspection: tachypneic Auscultation: diminished lung sounds Cardio regular rate, regular rhythm, S1 normal heart sound, S2 normal heart sound, no murmurs and peripheral pulses 2+ throughout GI normal to inspection, nondistended, normoactive bowel sounds, soft to palpation, non-tender and non-distended; Negative for hepatosplenomegaly Extremity normal to inspection, full ROM, normal capillary refill and no clubbing, cyanosis or edema General Extremity: no tenderness to palpation of joints or extremities Peripheral Pulses: Yes pulses 2+ throughout Skin no rashes or lesions noted General Skin Exam: no breakdown and turgor normal Lesions: no lesions Rashes: no rashes Neuro oriented x3, CN's II-XII intact bilaterally, moves all extremities, no focal motor deficits and no sensory deficits noted Sensorium / Orientation: awake and alert Psych thought process normal, cooperative and affect normal Appearance: appropriate Mood & Affect: flat affect Assessment & Plan Assessment/Plan (1) COVID-19: (2) Acute respiratory failure with hypoxia: PLAN: #Acute hypoxic respiratory failure due to COVID 19 pneumonia * currently on 5L of oxygen * completed a course of decadron and remdesivir. * weaned off AirVo to oxygen and now on 8L. Didnt receive remdesivir or baricitinib as he was out of the window for both. * sputum cultures were negative * titrate oxygen to maintain sats >90% * breathing treatment with bronchodilators. * lasix prn to maintain euvolemic status * #Paroxysmal afib * currently rate controlled. On amiodarone * Had a transient episode of A. fib with RVR on 07/31/2021 but this was aborted with IV Lopressor x1. * Continue amiodarone and metoprolol as well as Eliquis. * #Debility due to acute hypoxic respiratory failure due to COVID-19 pneumonia * PT OT on board. Fall precautions. #Hyperlipidemia: On statin #Hypertension: On metoprolol #Obesity: BMI is 35.2. Complicates acute care, expected recovery and prognosis. Counseled on DASH diet. DVT prophylaxis: On Eliquis Disposition: * for likely DC tomorrow. * Had a walking pulse ox today which showed that he required 6L of oxygen with ambulation. Will keep one more day to further optimise his care. Charges/Coding Visit Charges Inpatient E&M: 47070 Subs Hosp L2
[2021-08-02 13:50] LABS: Pathologist Review Reviewed
[2021-08-02] MEDS: 0.9% Saline Lock 10 ML Syringe IV (21:02)
[2021-08-02] MEDS: MELATONIN 3 MG TABLET PO (21:04)
[2021-08-02] MEDS: Atorvastatin Calcium 20 MG Tablet PO (21:04)
[2021-08-03] VITALS (10 sets, daily range): BP systolic 111–115; BP diastolic 67–77; PULSE 67–81; RESP 18; TEMP 36.6–36.8; O2SAT 86–97
[2021-08-03] MEDS: Levothyroxine 88 MCG Tablet PO (05:24)
[2021-08-03 06:02] LABS: Hemoglobin 11.5 g/dL (13.0-16.5); Mean Corp Hgb Conc 32.9 g/dL (32-36); Mean Corpuscular Hgb 29.4 pg (27.0-32.0); Mean Corpuscular Volume 89.5 fL (80-94); Mean Platelet Vol. 10.7 fl (6.2-12.0); POSITIVE COUNT YES; POSITIVE MORPHOLOGY YES; Platelet Count 144 K/mm3 (150-450); RBC Distribution Width CV 14.8 % (11.6-14.6); RBC Distribution Width SD 48.7 fl (35.1-43.9); Red Blood Count 3.91 M/mm3 (4.6-6.2); White Blood Count 7.9 K/mm3 (4.4-11.0)
[2021-08-03 06:04] LABS: Differential Indicated MANUAL DIFF
[2021-08-03 06:22] LABS: Absolute Neutrophil Count 5.5 X10^3/uL (2.0-7.7)
[2021-08-03 06:23] LABS: Absolute Lymphocyte Count 1.83 X10^3/uL (0.83-4.51); Atypical Lymphocyte 2+ %; Eosinophil 4 % (0-5); Lymphocyte 23 % (19-41); Metamyelocyte 1 % (0-1); Monocyte 2 % (0-10); Myelocyte 1 % (0-0); Neutrophil-Segmented 69 % (47-70); Platelet Estimate SLT DEC (ADEQ)
[2021-08-03 06:24] LABS: Anisocytosis 1+; Red Cell Morphology NORM C+C NORMAL (NORM C&C)
[2021-08-03 06:31] LABS: Anion Gap 4 (5-15); BUN 20 mg/dL (7-18); BUN/Creat Ratio 19.8 RATIO (10-20); Calcium,Total 8.2 mg/dL (8.5-10.1); Chloride 105 mmol/L (98-107); Creatinine, Serum 1.01 mg/dL (0.70-1.30); EST Glomerular Filtration Rate 75 mL/min (>60); Est Glom Filt Rate - Afr Amer 91 mL/min (>60); Estimated Creatinine Clearance 60.23 ml/min; Glucose 165 mg/dL (74-106); Potassium 4.6 mmol/L (3.5-5.1); Sodium Level 140 mmol/L (136-145)
[2021-08-03] MEDS: Amiodarone 200 MG Tablet 100 MG PO (09:35)
[2021-08-03] MEDS: Metoprolol Tartrate 25 MG Tablet PO (09:36)
[2021-08-03] MEDS: amLODIPine 5 MG Tablet PO (09:36)
[2021-08-03] MEDS: APIXABAN 5 MG TABLET PO (09:36)
[2021-08-03] MEDS: Lisinopril 40 MG Tablet PO (09:37)
[2021-08-03] MEDS: Allopurinol 100 MG Tablet PO (09:37)
--- NOTE | 2021-08-03 11:00 | CASEMGMT ---
Addendum entered by Brandee Mendez 08/03/21 12:34: RN EDIS in to pt room, present. TC to [facility] to make aware that already present at hospital, spoke with Heather. They will deliver portable tank to the hospital. Discussed having home therapy with patient as therapy recommended additional therapy. Pt states he does not want this set up at this time. Patient was provided a list of HHC providers including quality and resource use data and consistent with the patient?s preferred geographic region, medical needs, and insurance network. Pt will take and if he feels once home he needs HHC, he will contact his PCP. Pt/ deny further needs. Original Note: Pt qualifies for home O2, t/c to [facility], spoke with Linn referral made. She states they are delivering the portable tank to the patient's home prior to dc and then the family member will bring in portable tank. TC to pt to make aware. Received vm, left returned call back number. Faxed referral to [facility].
--- NOTE | 2021-08-03 12:10 | DS.PCM_ITS ---
Providers Date of Admission: 07/18/21 Primary Care Physician: Dr. Rohan Dyer MD Reason For Visit: RESP FAILURE COVID 19 Diagnosis Discharge Diagnosis (1) COVID-19: Status: Acute Code(s): U07.1 - COVID-19 (2) Acute respiratory failure with hypoxia: Status: Acute Code(s): J96.01 - Acute respiratory failure with hypoxia Medications at Discharge Home Medications allopurinol 100 mg PO BID 10/08/16 amiodarone 100 mg PO DAILY 07/18/21 amlodipine 5 mg PO DAILY 07/18/21 apixaban [Eliquis] 5 mg PO BID 07/18/21 atorvastatin 20 mg PO QHS 07/18/21 levothyroxine [Synthroid] 88 mcg PO DAILY 07/18/21 lisinopril 40 mg PO DAILY 07/18/21 metoprolol tartrate 25 mg PO BID 07/18/21 Hospital Course Operations None Procedures None Summary of Care Provided Minutes Spent on Discharge: 45 Hospital Course: Patient is an 80-year-old male with an extensive past medical history as outlined was admitted through the ED on 07/18/2021 with complaint of worsening shortness of breath. He became symptomatic for Covid on 07/06/2021 and tested positive on 07/10/2021. He was found to be saturating in the low 80s on room air and so he was sent to the ER from his primary care doctor's office. He was admitted and managed for acute hypoxic respiratory failure due to COVID-19 p neumonia. CTA of the chest was negative for any PE. Patient was not within the timeline for remdesivir. He was started on Decadron. Patient also required as needed Lasix to maintain euvolemic status. Patient's had a prolonged and protracted course due to COVID-19 pneumonia required high levels of oxygen. He was gradually weaned down to 2 L of oxygen on 08/03/2021. He had a walking pulse ox on 08/03/2021 which showed that he qualified for 4 L of oxygen. Patient was therefore discharged home on 08/03/2021 with 4 L of oxygen. He is to follow-up with his primary care doctor in 1 to 2 weeks. Patient was seen and examined prior to discharge. He felt well and had no complaints. Review of systems otherwise negative. Labs and vitals reviewed. Medication reviewed and reconciled. Physical Exam Const alert, oriented x3 and no apparent distress General Appearance: cooperative and comfortable Orientation / Consciousness: awake Exam Limitations: no limitations HEENT normocephalic, head/scalp atraumatic and moist oral mucous membranes Eyes PERRL, EOMs intact bilaterally, conjunctivae normal and no scleral icterus Neck full ROM, no lymphadenopathy, supple and no JVD General: trachea midline Resp normal air movement Resp Narrative: Diminished breath sounds bibasilarly. No wheezes or crackles. On 2 L of oxygen. Effort and Inspection: tachypneic Auscultation: diminished lung sounds Cardio regular rate, regular rhythm, S1 normal heart sound, S2 normal heart sound, no murmurs and peripheral pulses 2+ throughout GI normal to inspection, nondistended, normoactive bowel sounds, soft to palpation, non-tender and non-distended; Negative for hepatosplenomegaly Extremity normal to inspection, full ROM, normal capillary refill and no clubbing, cy anosis or edema General Extremity: no tenderness to palpation of joints or extremities Skin no rashes or lesions noted General Skin Exam: no breakdown and turgor normal Lesions: no lesions Rashes: no rashes Neuro oriented x3, CN's II-XII intact bilaterally, moves all extremities, no focal motor deficits and no sensory deficits noted Sensorium / Orientation: awake and alert Psych thought process normal, cooperative and affect normal Appearance: appropriate Mood & Affect: flat affect Medical Records Data Medical Nutrition Assessment Dietitian: Malnutrition Criteria Met Start: 07/19/21 14:54 Freq: Status: Active Protocol: Document 07/22/21 11:23 (Rec: 07/22/21 11:23 [id number]) Nutrition Malnutrition Evidence of Malnutrition Exists Yes Malnutrition (moderate): Acute Illness/Injury Evidenced By Suboptimal Energy Intake ( Moderate),Weight Loss ( Moderate) Clinical Problem Acute Disease or Injury Related Malnutrition Etiology moderate, acute malnutrition r /t inadequate energy intake d/ t acute illness Signs/Symptoms as evidenced by reported decreased appetite, estimated PO intake meeting <75% of estimated nutritional needs >1 week, unintentional wt loss of 7.1#/2.8% x 13 days Status Active Problem Recommendation Dietitian Recommendations/Changes continue regular diet, 120mL ensure enlive w/ meals d/t acute malnutrition Weight / BMI Weight Weight: 246 lb 7.629 oz Body Mass Index (BMI) 35.1 ABG / Lab / Microbiology Data Result Diagrams: 08/03/21 05:32 08/03/21 05:32 Laboratory: Laboratory Results - last 24 hr 08/02/21 06:44: Diff Path Review Reviewed 08/03/21 05:32: WBC 7.9, RBC 3.91 L, Hgb 11.5 L, Hct 35.0 L, MCV 89.5, MCH 29.4, MCHC 32.9, RDW Std Deviation 48.7 H, RDW Coeff of Arjun 14.8 H, Plt Count 144 L, MPV 10.7, Neut % (Auto) Not Reportable, Absolute Neuts (auto) 5.5, Absolute Lymphs (auto) 1.83, Neutrophils % (Manual) 69, Lymphocytes % (Manual) 23, Monocytes % (Manual) 2, Eosinophils % (Manual) 4, Metamyelocytes % 1, Myelocytes % 1 H, Diff Path Review May foll, Atypical Lymphocytes 2+, Platelet Estimate SLT DEC, RBC Morphology NORM C+C, Anisocytosis 1+ 08/03/21 05:32: Sodium 140, Potassium 4.6, Chloride 105, Carbon Dioxide 31.0, Anion Gap 4 L, BUN 20 H, Creatinine 1.01, Estim Creat Clear Calc 60.23, Est GFR (MDRD) Af Amer 91, Est GFR (MDRD) Non-Af 75, BUN/Creatinine Ratio 19.8, Glucose 165 H, Calcium 8.2 L Microbiology: Microbiology 07/22/21 10:40 Sputum, Expectorated/Coughed Gram Stain - Final 07/22/21 10:40 Sputum, Expectorated/Coughed Respiratory Culture - Final Mixed normal respiratory isabel. No Streptococcus pneumoniae, beta-hemolytic Streptococcus or Staphylococcus aureus isolated. 07/18/21 17:25 Mucosa - Nasopharyngeal Respiratory Panel (PCR) - Final 07/18/21 20:53 Urine, Clean Catch Legionella Antigen - Final 07/18/21 20:53 Urine, Clean Catch Streptococcus pneumoniae Antigen (M - Final 07/18/21 14:46 Nasal Secretion SARS-CoV-2 Antigen (Rapid) - Final D/C Instructions Discharge Diet: Low fat / Low cholesterol Discharge Activity: Return to Normal Activity Weight Bearing Status: Weight bearing as tolerated Call your doctor if you observe: Fever of 101 or Higher, Shortness of breath, Swelling in the ankles and Increased palpitations (irregular heartbeat) Meaningful Use Info Meaningful Use Diagnoses (Choose all that apply): None applicable Discharge Plan Admission Admit Date/Time: 07/18/21 17:12 Primary Reason for Your Visit: acute hypoxic respiratory failure due to covid 19 pneumonia Attending Provider: Bernadine Forde Primary Care Provider: Rohan Dyer Instructions Patient Instructions: Coronavirus Disease 2019 (COVID-19): Overview Additional Instructions / Restrictions: use oxygen 4L for shortness of breath as needed. Discharge Orders/Prescriptions Prescriptions: No Action allopurinol 100 MG tablet 100 mg PO BID RF: 0 atorvastatin 20 mg tablet 20 mg PO QHS RF: 0 amiodarone 200 mg tablet 100 mg PO DAILY RF: 0 amlodipine 5 mg tablet 5 mg PO DAILY RF: 0 levothyroxine [Synthroid] 88 mcg tablet 88 mcg PO DAILY RF: 0 lisinopril 40 mg tablet 40 mg PO DAILY RF: 0 metoprolol tartrate 25 mg tablet 25 mg PO BID RF: 0 Eliquis 5 mg Tablet 5 mg PO BID RF: 0 Referrals / Follow Up: Rohan Dyer MD [Primary Care Provider] - (Appointment 0n Sunday @ 11:20am) Disposition Disposition (needs filled in before D/C Order can be placed): Home, Self Care Charges/Coding Visit Charges Inpatient E&M: 59213 Disch Hosp
--- NOTE | 2021-08-04 12:45 | CASEMGMT ---
JAKE RANDHAWA Discharge Follow Up Phone Call: NAT: Trinity Strata: 3 Call Date: 08/04/2021 Discharge Date: 08/03/2021 Time of Call:1242 Duration: 3 min Admitting Dx: COVID, resp failure JAKE RANDHAWA completed follow up phone call after recent hospitalization. Pt states he is doing as expected at home. He states it takes it looks a little bit to recover once he goes to the bathroom. Pt just obtained a pulse ox. He is aware parameters to notify his MD of when he checks it. Pt has an appt on Aug 09 with PCP. Pt states his O2 was set up without difficulty. Pt denies any questions regarding his medications or dc instructions.
[2021-08-05 09:14] LABS: Pathologist Review Reviewed
== END 2021-08-03 14:19 | disposition home or self-care (01) | DRG 177 ==
LOC: ED 17:19 → MS3 17:21
PROVIDERS: Family Medicine; Internal Medicine; Admitting Provider Internal Medicine; Emergency Provider Emergency Medicine; PCP Internal Medicine; Visit Provider Student in an Organized Health Care Education/Training Program
DX: U07.1 COVID-19 (principal); J96.01 Acute respiratory failure with hypoxia; J12.82 Pneumonia due to coronavirus disease 2019; E44.0 Moderate protein-calorie malnutrition; I48.0 Paroxysmal atrial fibrillation; I12.9 Hypertensive chronic kidney disease with stage 1 through stage 4 chronic kidney disease, or unspecified chronic kidney disease; N18.2 Chronic kidney disease, stage 2 (mild); E78.5 Hyperlipidemia, unspecified; E03.9 Hypothyroidism, unspecified; M10.9 Gout, unspecified; M19.90 Unspecified osteoarthritis, unspecified site; N40.0 Benign prostatic hyperplasia without lower urinary tract symptoms; E66.9 Obesity, unspecified; Z68.35 Body mass index [BMI] 35.0-35.9, adult; Z79.82 Long term (current) use of aspirin; Z79.01 Long term (current) use of anticoagulants; Z79.890 Hormone replacement therapy; Z79.899 Other long term (current) drug therapy; Z85.46 Personal history of malignant neoplasm of prostate
CPT/HCPCS: 36415; 71275; 80048; 80053; 83735; 83880; 84100; 84484; 85025; 85610; 85730; 87070; 87205; 87426; 87449; 87633; 87635; 93005; 94003; 94660; 94667; 94668; 94762; 97110; 97150; 97161; 97166; 97530; 97535; 97803; 99251; 99284; J7040; Q9967; U0005; A4216; G0463; J1940; U0003